=== PATIENT | female | born 1930 | race Caucasian/White ===

== ENCOUNTER → 2016-11-04 | Outpatient (CLI) | payer OTHER ==
[~2016-11-04] MED LIST: AMLO-114 PO; ASCA500 PO; ASPI325T45 PO; ATEN50TA8 PO; ATOR-14 PO; ATOR10TA82 PO; ATV/1 PO; ATV1 PO; BLAC160C PO; CALC1TAB27 PO; CHOL1TAB42 PO; CHOL1TAB46 PO; CTP/1 PO; DICY10CA12 PO; DULO60CA44 PO; ESTR1CRE PV; FLUO0.05 TOP; FOLI1TAB7 PO; FOLI800T PO; FRS/40 PO; LDDP5 TD; LOSA50TA54 PO; MECL1TAB42 PO; MELO15TA4 PO; MLXESC PO; MRLP17X PO; MULT-190 PO; NIAC500T11 PO; NXM/40 PO; OXYB10TA13 PO; OXYC-57 PO; POLY335019 PO; POTA8CAP6 PO; SULF-183 PO; VITATAB PO; VSC/10 PO; [UNRECOGNIZED DRUG - CODE] PO
--- NOTE | 2016-11-04 15:38 | DIAGNOSTIC IMAGING REPORT ---
BILATERAL LOWER EXTREMITY VENOUS DOPPLER CLINICAL HISTORY: Leg pain and edema. COMPARISON STUDY: Left lower extremity venous Doppler January 22 2013. TECHNIQUE: Sonography of the deep venous system of the bilateral lower extremities was performed. Compression and augmentation were evaluated. FINDINGS: The bilateral common femoral, superficial femoral and popliteal veins were compressible. Augmentation was normal. Flow was shown within the deep calf vessels. A right popliteal fluid collection measures 7.3 x 2.5 x 4.4 cm and a left popliteal fluid collection measures 6.2 x 1.8 x 3.5 cm. These reflect popliteal cyst. IMPRESSION: 1. No evidence of deep venous thrombus within the bilateral lower extremities. 2. Moderate sized bilateral popliteal cysts. Electronically signed by: Lizandro Vieyra M.D. 11/04/2016 3:36 PM Dictated Date/Time: 11/04/2016 3:33 PM
== END | disposition home or self-care (01) ==
LOC: C.ULTR 14:54
PROVIDERS: ATTEND Internal Medicine
DX: M79.604 Pain in right leg (principal); M79.605 Pain in left leg; R60.0 Localized edema

== ENCOUNTER 2016-12-18 20:22 | Emergency (ER) | payer OTHER ==
[~2016-12-18] VITALS: Ht 157.5 cm; Wt 87.3 kg
[~2016-12-18 20:22] MED LIST changes: -ATOR10TA82 PO; -ATV1 PO; -BLAC160C PO; -CHOL1TAB46 PO; -FOLI800T PO; -LDDP5 TD; -MELO15TA4 PO; -MLXESC PO; -MRLP17X PO; -OXYC-57 PO; -POLY335019 PO; -POTA8CAP6 PO; -SULF-183 PO; -VSC/10 PO
[2016-12-18 20:35] VITALS: TEMP 36.6; Ht 157.5 cm; Wt 87.3 kg
--- NOTE | 2016-12-18 21:40 | DIAGNOSTIC IMAGING REPORT ---
HEAD CT NONCONTRAST CT DOSE: 537.48 mGy.cm HISTORY: fall, posterior impact. CHI TECHNIQUE: Multiaxial CT images of the head were performed without the use of intravenous contrast. Automated exposure control was utilized for this study. Comparison: None. Findings: The paranasal sinuses and mastoid air cells are clear. The calvarium and skull base are intact. There is no mass, hematoma, midline shift, acute infarct. White matter hypodensity is nonspecific but suggestive of microvascular ischemic change. The ventricles and sulci demonstrate mild age-related involutional changes. Left posterior scalp hematoma. Impression: No acute intracranial abnormality. Atrophy and microvascular ischemic changes. Left posterior scalp hematoma. Electronically signed by: Hero Oconnell M.D. 12/18/2016 9:38 PM Dictated Date/Time: 12/18/2016 9:32 PM
[2016-12-18 22:53] VITALS: BP 173/91; PULSE 57; O2SAT 97
--- NOTE | 2016-12-18 23:58 | EMERGENCY ROOM VISIT NOTE ---
History Report prepared by Annalisaibshanelle: Amado Neville Under the Supervision of: Dr. Rajeev Long M.D. First contact with patient: 20:43 Chief Complaint: HEAD INJURY (MINOR) Stated Complaint: FALL History of Present Illness The patient is an 86 year old female who presents to the Emergency Room with an acute fall that occurred earlier this evening. The patient was in her kitchen when she slipped, fell backwards, and hit the back of her head on the tile floor. The floor was reportedly wet. She now has head pain rated 5/10 in severity. She did not lose consciousness. There were no external signs of bleeding at any point. She had Tylenol just prior to the fall. The fall was witnessed by her daughter, who informed the patient's son. The patient does not currently take any blood thinners including aspirin. She follows up with the [facility]. She has lower extremity edema at baseline. Patient denies LOC, visual changes, neck pain, chest pain, breathing difficulties, nausea, vomiting, abdominal pain, back pain, extremity pain, numbness, weakness , open wounds, active bleeding, or other complaints. Source of History: patient, family (son) Onset: this evening Position: other (global) Quality: other (fall) Timing: other (acute) Associated Symptoms: + headache Review of Systems See HPI for pertinent positives and negatives. A total of ten systems were reviewed and were otherwise negative. Past Medical & Surgical Medical Problems: (1) Herpes zoster (2) Humerus fracture Family History Patient reports no known family medical history. Social History Smoking Status: Never Smoker Alcohol Use: none Drug Use: none Marital Status: single Housing Status: lives with family Occupation Status: retired Current/Historical Medications Scheduled Amlodipine (Norvasc), 5 MG PO DAILY Ascorbic Acid (Vitamin C), 1,000 MG PO BID Aspirin (Aspirin), 325 MG PO BIDM Atenolol (Tenormin), 50 MG PO HS Atorvastatin (Lipitor), 10 MG PO QPM Kmhipwk-Hokdthymz-Kbmo (Calcium Magnesium & Zinc), 1 TAB PO TID Cholecalciferol (Vitamin D), 5,000 UNITS PO DAILY Clonidine Hcl (Catapres), 0.1 MG PO BID Duloxetine Hcl (Cymbalta), 60 MG PO DAILY Esomeprazole Magnesium (Nexium), 40 MG PO DAILY/UD Estrogens, Conjugated Vaginal (Premarin), 0.5 APPLN PV 2XWK Folic Acid (Folvite), 1 MG PO DAILY Furosemide (Lasix), 40 MG PO DAILY Losartan Potassium (Cozaar), 50 MG PO BID Niacin (Niacin), 500 MG PO BID Ocuvite Preservision (Ocuvite Preservision), 1 TAB PO BID Oxybutynin Chloride Er (Ditropan Xl), 10 MG PO DAILY Potassium Chloride (Potassium Chloride Er), 1 CAP PO DAILY Vitamins W/ Lipotropics (B-100), 1 TAB PO BID Scheduled PRN Dicyclomine Hcl (Dicyclomine Hcl), 10 MG PO QID PRN Fluocinonide 0.05% (Lidex 0.05%), 1 APPLN TOP BID PRN for Itching Lorazepam (Ativan), 1 MG PO TID PRN Meclizine Hcl (Meclizine Hcl), 25 MG PO QID PRN Allergies Coded Allergies: Acetaminophen (Verified Allergy, sick, 01/22/13) Dextromethorphan (Verified Allergy, sick, 01/22/13) Guaifenesin (Verified Allergy, sick, 01/22/13) Meperidine (Verified Allergy, passed out, 01/22/13) Pseudoephedrine (Verified Allergy, sick, 01/22/13) Tramadol (Verified Allergy, sick all over, 01/22/13) Physical Exam Vital Signs Date Time Temp Pulse Resp B/P Pulse Ox O2 Delivery O2 Flow Rate FiO2 12/18/16 22:53 57 18 173/91 97 Room Air 12/18/16 21:30 54 18 155/79 98 Room Air 12/18/16 20:53 53 12/18/16 20:38 20 12/18/16 20:35 36.6 58 18 155/79 93 Room Air Physical Exam GENERAL: Awake, alert, tired appearing, no acute distress HEAD: Contusion over the left occiput. No sethi sign. No raccoon eyes. EYES: Normal conjunctiva. PERRL. EARS: External ears normal. OROPHARYNX: Lips, tongue, and mucosa unremarkable. No erythema or exudate. NECK: Supple. No tracheal deviation or JVD. No posterior midline tenderness. No step offs noted. RESPIRATORY: CTA bilaterally CARDIAC: Regular rate, normal rhythm. ABDOMEN: Inspection reveals no abnormalities. Soft, non distended. No tenderness to palpation. No hernias. BACK: No midline step offs or tenderness to palpation. Unremarkable. PELVIS: Stable to rock. SKIN: 1+ lower extremity edema. LYMPH: No adenopathy. MUSCULOSKELETAL: Upper and lower extremities are atraumatic. NEURO: GCS 15. Normal sensorium. No sensory or motor deficits noted. Medical Decision & Procedures ER Provider Diagnostic Interpretation: Radiology results as stated below per my review and radiologist interpretation: HEAD CT NONCONTRAST CT DOSE: 537.48 mGy.cm HISTORY: fall, posterior impact. CHI TECHNIQUE: Multiaxial CT images of the head were performed without the use of intravenous contrast. Automated exposure control was utilized for this study. Comparison: None. Findings: The paranasal sinuses and mastoid air cells are clear. The calvarium and skull base are intact. There is no mass, hematoma, midline shift, acute infarct. White matter hypodensity is nonspecific but suggestive of microvascular ischemic change. The ventricles and sulci demonstrate mild age-related involutional changes. Left posterior scalp hematoma. Impression: No acute intracranial abnormality. Atrophy and microvascular ischemic changes. Left posterior scalp hematoma. Electronically signed by: Hero Oconnell M.D. 12/18/2016 9:38 PM Dictated Date/Time: 12/18/2016 9:32 PM ED Course 2111: The patient was evaluated in room C9. A complete history and physical exam was performed. 2209: I reevaluated the patient. Discussed results and discharge instructions: She verbalized understanding and agreement. The patient is ready for discharge. Medical Decision Prior records/ancillary studies reviewed. Triage Nursing notes reviewed and agree them. Additional history obtained from family. The patient's history was concerning for traumatic head injury Differential diagnosis: Etiologies such as contusion, fracture, subdural hematoma, concussion, epidural hematoma, intraparenchymal hemorrhage, as well as other traumatic pathologies were entertained. Physical examination findings: As above. ER treatment provided: The patient took Tylenol just before the accident. Icepack On reassessment the patient felt better. Diagnostics interpreted by me: Imaging studies: CT scan It appears the patient has a closed head injury. I did discuss warning signs for delayed bleeding and serious complications from head injury. The patient's family feel comfortable with going home.I gave my usual and customary discussion regarding this issue. By the evaluation outlined above emergent etiologies such as fracture, subdural hematoma, epidural hematoma, intraparenchymal hemorrhage, as well as others were deemed relatively unlikely. The patient and family were informed about the findings as listed above. All questions were answered and they were pleased with the treatment. Return instructions were outlined and the patient was discharged in stable condition. Referral: The patient was referred back to her PCP primary care physician for follow-up in 2 to 3 days for a recheck of the current condition. The chart was completed utilizing [employer] Speech voice recognition software. Grammatical errors, random word insertions, pronoun errors, and incomplete sentences are an occasional consequence of this system due to software limitations, ambient noise, and hardware issues. Any formal questions or concerns about the content, text, or information contained within the body of this dictation should be directly addressed to the physician for clarification. Impression Primary Impression: Scalp hematoma Additional Impression: Closed head injury Scribe Attestation The scribe's documentation has been prepared under my direction and personally reviewed by me in its entirety. I confirm that the note above accurately reflects all work, treatment, procedures, and medical decision making performed by me. Departure Information Dispostion Home / Self-Care Referrals Navin Bertrand D.O. (PCP) Forms HOME CARE DOCUMENTATION FORM, IMPORTANT VISIT INFORMATION Patient Instructions My [facility] Additional Instructions CONCUSSION DISCHARGE INSTRUCTIONS: What is a concussion? A concussion is a disturbance in the function of the brain caused by a direct or indirect force to the head. It results in a variety of symptoms like: headache, balance problems, nausea, vomiting, vision problems, hearing problems/ringing, drowsiness, irritability, and/or difficulty concentrating or remembering. A concussion may, or may not involve memory problems or loss of consciousness. Concussion instructions: Stop and stay away from ALL physical activity until you are symptom free from: Headaches Balance problems Feeling "dinged" Poor concentration Drowsy Fatigued Rest and avoid strenuous activities for the next few days. Get 8-10 hours of sleep per night. Limit activities that involve significant concentration and attention during this time to speed your recovery. This includes studying, attending school, playing video games, and heavy reading. Your brain needs to rest. Eat right and eat often. Now is the time to feed your brain. Well balanced diets that avoid high sugar foods, sodas, caffeine, etc. are better for your brain. NO ALCOHOL OR DRUGS! Avoid stimulants like caffeine, red bull, mountain dew, "energy" drinks, etc. Tylenol(acetaminophen) may be used for headaches. Use 1000mg every six hours as needed. Avoid using more than 4000mg in a 24 hour period. Avoid anti-inflammatories such as aspirin, ibuprofen, Alleve, naprosyn, Motrin, or Advil as these can interfere with blood clotting and lead to bleeding within the brain after a traumatic injury. FOLLOW UP INSTRUCTIONS: You should have a follow up with your family doctor or team physician in 3-5 days regarding your injury. POST CONCUSSIVE SYNDROME: Occasionally patients can experience a postconcussive syndrome which includes prolonged headaches and memory difficulties. This may occur over the next several days, weeks or rarely, even months. It is important to have a primary care physician follow-up in order to help if the situation develops. Problems could arise over the next 24 to 48 hours. You should not be left alone and MUST go to the hospital immediately if you: -Have a headache that suddenly gets worse. -Are very drowsy or cannot be woken up from sleep. -Can't recognize people or places. -Have repeated vomiting. -Behave unusually, seemed confused, or start acting irritable. -Have a seizure (arms and legs start jerking uncontrollably). -Have weak or numb arms or legs. -Are unsteady on your feet -Experience slurred speech or difficulty speaking. Problem Qualifiers Primary Impression: Scalp hematoma Encounter type: initial encounter Qualified Codes: S00.03XA - Contusion of scalp, initial encounter Additional Impression: Closed head injury Encounter type: initial encounter Qualified Codes: S09.90XA - Unspecified injury of head, initial encounter
[2017-02-25] MEDS ORDERED: ATOR10TA82 PO (14:31)
[2017-02-26] MEDS ORDERED: ATV1 PO (09:48)
[2017-02-26] MEDS ORDERED: MRLP17X PO (09:48)
[2017-02-26] MEDS ORDERED: MLXESC PO (09:48)
[2017-02-26] MEDS ORDERED: OXYC-57 PO (09:48)
[2017-02-26] MEDS ORDERED: LDDP5 TD (09:48)
== END 2016-12-18 23:05 | disposition home or self-care (01) ==
LOC: EDBD 20:22 → C.EDC 20:23
DX: S00.03XA Contusion of scalp, initial encounter (principal); S09.90XA Unspecified injury of head, initial encounter; W19.XXXA Unspecified fall, initial encounter; B02.9 Zoster without complications; Z79.82 Long term (current) use of aspirin

== ENCOUNTER 2017-02-25 12:13 | Observation (INO) | payer OTHER ==
[~2017-02-25] VITALS: Ht 160 cm; Wt 87.6 kg
[2017-02-25] MEDS ORDERED: MoRPHine SULFATE 4 MG/ML 1 ML CARP\\VIAL IV STA (13:07)
[2017-02-25] MEDS ORDERED: ONDANSETRON INJ 2 MG/ML 2 ML VIAL IV STA (13:07)
--- NOTE | 2017-02-25 13:50 | DIAGNOSTIC IMAGING REPORT ---
PELVIS 1 OR 2 VIEW ROUTINE CLINICAL HISTORY: fall/left buttock bruise and pain. COMPARISON STUDY: No previous studies for comparison. FINDINGS: The sacroiliac joints and symphysis pubis are intact. No acute fracture is identified within the pelvis or the hips. IMPRESSION: No acute fracture within the pelvis or hips. Electronically signed by: Lizandro Vieyra M.D. 02/25/2017 1:49 PM Dictated Date/Time: 02/25/2017 1:48 PM
--- NOTE | 2017-02-25 13:52 | DIAGNOSTIC IMAGING REPORT ---
LEFT SHOULDER MIN 2 VIEWS ROUTINE CLINICAL HISTORY: Left shoulder pain following fall. COMPARISON: Left shoulder radiograph July 02, 2014. FINDINGS: Alignment of the left shoulder arthroplasty is anatomic. No periprosthetic fracture is identified. Note is made of several acute left-sided rib fractures, one of which is mildly displaced. IMPRESSION: 1. Status post left shoulder arthroplasty. Hardware intact. Alignment anatomic. No periprosthetic fracture identified. 2. Several acute lateral left-sided rib fractures, one of which is mildly displaced. Electronically signed by: Lizandro Vieyra M.D. 02/25/2017 1:51 PM Dictated Date/Time: 02/25/2017 1:49 PM
[2017-02-25 13:58] LABS: BASO % 0.1 %; BASO ABS # 0.01 K/uL (0-0.2); COMPLETE YES; EOS % 0.4 %; HEMATOCRIT 39.1 % (37-47); IG% 0.1 %; LYMPH % 13.8 %; MEAN CELL VOLUME 94.9 fL (80-100); MEAN CORPUSCULAR HGB CONC 33.8 g/dl (32-36); MEAN PLATELET VOLUME 9.7 fL (7.4-10.4); MONO % 9.4 %; NEUT % 76.2 %; PLATELET COUNT 264 K/uL (130-400); RED BLOOD COUNT 4.12 M/uL (4.2-5.4); WHITE BLOOD COUNT 9.45 K/uL (4.8-10.8)
[2017-02-25 14:14] LABS: PARTIAL THROMBOPLASTIN RATIO 1.1; PROTHROMBIN TIME (PATIENT) 10.9 SECONDS (9.0-12.0)
[2017-02-25 14:15] LABS: BUN/CREATININE RATIO 11.7 (10-20); CALCIUM 9.7 mg/dl (8.5-10.1); CREATININE 0.67 mg/dl (0.60-1.20); POTASSIUM 3.9 mmol/L (3.5-5.1)
[2017-02-25] MEDS ORDERED: ATOR10TA88 PO (14:31)
[2017-02-25] MEDS ORDERED: VSC/10 PO (14:31)
[2017-02-25] MEDS ORDERED: FOLI800T PO (14:31)
[2017-02-25] MEDS ORDERED: MELO15TA4 PO (14:31)
[2017-02-25 15:17] LABS: URINE APPEARANCE CLEAR (CLEAR); URINE BILIRUBIN NEG (NEG); URINE COLOR YELLOW; URINE EPITHELIAL CELL AUTO 0-5 /lpf (0-5); URINE NITRITE NEG (NEG); URINE PH 7.5 (4.5-7.5); URINE SPECIFIC GRAVITY 1.011 (1.000-1.030); UROBILINOGEN NEG (NEG); ZZUR CULT IF INDIC CLEAN CATCH NO
[2017-02-25 15:27] LABS: MANUAL MICROSCOPIC REQUIRED? NO; REVIEW REQ? NO; SULFASALICYLIC ACID NEG (NEG)
--- NOTE | 2017-02-25 15:28 | DIAGNOSTIC IMAGING REPORT ---
CT OF THE HEAD WITHOUT CONTRAST CLINICAL HISTORY: Fall/headache. COMPARISON STUDY: Head CT December 18, 2016. CT DOSE: 2667.55 mGy.cm TECHNIQUE: Helical axial images of the head were obtained without IV contrast. Automated exposure control was utilized for the study. A dose lowering technique was utilized adhering to the principles of ALARA. FINDINGS: No acute intracranial hemorrhage, midline shift or mass effect is present. Ventricular system is stable. Basilar cisterns are patent. There are no extra-axial collections. White matter hypodensities suggest moderate small vessel disease. A left posterior scalp contusion has nearly completely resolved since prior head CT. There is no calvarial fracture. IMPRESSION: 1. No acute intracranial findings. 2. No calvarial fracture. Electronically signed by: Lizandro Vieyra M.D. 02/25/2017 3:27 PM Dictated Date/Time: 02/25/2017 3:25 PM
--- NOTE | 2017-02-25 15:37 | DIAGNOSTIC IMAGING REPORT ---
CT OF THE CHEST WITHOUT IV CONTRAST CLINICAL HISTORY: Left-sided chest pain following fall. COMPARISON STUDY: Chest radiograph April 03, 2004 18. TECHNIQUE: Axial images of the chest were obtained without IV contrast. Images were reviewed in the axial, sagittal, and coronal planes. IV contrast was not administered for this examination. A dose lowering technique was utilized adhering to the principles of ALARA. FINDINGS: No mediastinal hematoma is identified. Evaluation of the thoracic aorta is suboptimal on this unenhanced exam but there is no evidence of traumatic injury to the thoracic aorta. Size of the heart is normal. There are no enlarged thoracic lymph nodes. There is no pneumothorax or pleural effusion. There is an indeterminate 8 mm groundglass opacity within left lower lobe shown on image 160 of 312. There are acute nondisplaced fractures of the lateral left third, fourth, fifth ribs as well as mildly displaced fractures of the lateral left sixth and seventh ribs. No acute thoracic spine fracture is identified. Lumbar spine will be reported separately. Left shoulder arthroplasty is noted. IMPRESSION: 1. Acute minimally displaced and nondisplaced fractures of the lateral left third through seventh ribs. No pneumothorax. 2. 8 mm groundglass opacity within the left lower lobe. This is low suspicion but indeterminate and a follow-up chest CT in 6 months to ensure resolution is recommended. Electronically signed by: Lizandro Vieyra M.D. 02/25/2017 3:36 PM Dictated Date/Time: 02/25/2017 3:27 PM
--- NOTE | 2017-02-25 15:43 | DIAGNOSTIC IMAGING REPORT ---
LUMBAR SPINE WITHOUT CLINICAL HISTORY: fall/low back pain/urinary incontinence COMPARISON STUDY: No previous studies for comparison. FINDINGS: No acute lumbar spine fracture is identified. There is marked multilevel disc space narrowing with osteophytosis. There is severe multilevel facet arthrosis. Central canal and neural foramen are suboptimally assessed by CT. However, there is suspected moderate to severe multilevel central canal and neural foraminal stenosis. Paravertebral soft tissues are unremarkable. IMPRESSION: 1. No acute lumbar spine fracture or subluxation. 2. 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 Electronically signed by: Lizandro Vieyra M.D. 02/25/2017 3:41 PM Dictated Date/Time: 02/25/2017 3:37 PM
[2017-02-25] MEDS ORDERED: HYDROCODONE/ACETAMOPHEN 5/325MG TAB PO STA (15:54)
--- NOTE | 2017-02-25 16:12 | EMERGENCY ROOM VISIT NOTE ---
ED Visit Note First contact with patient: 12:55 The patient was seen and examined with Shikha Ball PA-C. I agree with the history, physical and findings. Please see the note for disposition and details.
--- NOTE | 2017-02-25 16:32 | EMERGENCY ROOM VISIT NOTE ---
History First contact with patient: 12:55 Chief Complaint: FALL Stated Complaint: FALL History of Present Illness The patient is a 86 year old female who presents to the Emergency Room via EMS with complaints of falling. The patient states she tripped on a rug. The patient lives alone. She does not think she lost consciousness. She states she was in her living room when the fall occurred. The son who was not there found her along side of a table which is along side of her chair which she normally since then. He also states that there is a plastic trash can that sits under the table which was broken when he came to her house. He states he had called her at approximately 920 this morning and at that point she was in the bathroom. He then went to check on her at 11:00 AM and found her on the living room floor. The patient is currently complaining of a headache at the front of her head. She denies any visual changes or dizziness. The patient denies any neck or upper back pain. She does admit to pain on both the posterior and anterior aspect of her left chest wall. She also admits to low back pain and pain in her left buttocks. She thinks she has a bruise on her left buttocks. The patient denies any pain in her lower extremities. The patient does admit that after the fall she felt like she was more incontinent with her urine. She denies any bowel incontinence. The patient denies any saddle anesthesia. The patient denies being on any blood thinners. She took 2 Tylenol before coming to the emergency room. Review of Systems 10 system review was performed and was negative unless stated otherwise history of present illness. Past Medical/Surgical History Medical Problems: (1) Herpes zoster (2) Humerus fracture Hypertension, hyperlipidemia Family History Patient reports no known family medical history. Social History Smoking Status: Never Smoker Alcohol Use: none Drug Use: none Marital Status: single Housing Status: lives alone Occupation Status: retired Current/Historical Medications Scheduled Atenolol (Tenormin), 50 MG PO PM Atorvastatin (Lipitor), 10 MG PO QPM Cholecalciferol (Vitamin D), 5,000 UNITS PO DAILY Clonidine Hcl (Catapres), 0.1 MG PO BID Duloxetine Hcl (Cymbalta), 60 MG PO DAILY Esomeprazole Magnesium (Nexium), 40 MG PO DAILY/UD Folic Acid (Folic Acid), 800 MCG PO BID Furosemide (Lasix), 40 MG PO DAILY Losartan Potassium (Cozaar), 50 MG PO BID Meclizine Hcl (Meclizine Hcl), 25 MG PO DIRECTED Meloxicam (Mobic), 15 MG PO QAM Potassium Chloride (Potassium Chloride Er), 1 CAP PO DAILY Solifenacin Succinate (Vesicare), 10 MG PO QAM Scheduled PRN Dicyclomine Hcl (Dicyclomine Hcl), 10 MG PO QID PRN Lorazepam (Ativan), 1 MG PO TID PRN Physical Exam Vital Signs Date Time Temp Pulse Resp B/P (MAP) Pulse Ox O2 Delivery O2 Flow Rate FiO2 02/25/17 16:23 71 19 94 02/25/17 16:02 150/76 02/25/17 15:53 75 13 94 02/25/17 15:48 73 16 91 02/25/17 15:43 72 12 90 02/25/17 15:38 76 14 89 02/25/17 15:33 75 13 91 02/25/17 15:31 163/76 02/25/17 15:28 74 13 88 02/25/17 15:23 72 16 93 02/25/17 15:18 69 14 92 02/25/17 15:13 70 19 94 02/25/17 15:08 74 13 173/71 83 02/25/17 14:03 70 94 02/25/17 14:01 164/89 02/25/17 13:58 64 13 96 02/25/17 13:53 68 17 97 02/25/17 13:48 66 20 93 02/25/17 13:43 73 19 93 02/25/17 13:42 215/101 02/25/17 13:38 65 17 02/25/17 13:33 67 18 02/25/17 13:28 71 17 02/25/17 13:23 68 21 02/25/17 13:18 66 17 02/25/17 13:13 67 19 96 02/25/17 13:08 64 17 96 02/25/17 13:03 67 20 93 02/25/17 12:58 66 14 98 02/25/17 12:54 75 02/25/17 12:53 75 21 96 02/25/17 12:48 172/62 02/25/17 12:46 98 Room Air 7/29/17 12:37 36.7 63 14 186/104 96 Room Air Physical Exam GENERAL: 86-year-old white female appears in no acute distress. MENTAL STATUS: Patient is alert and oriented x3. HEAD: Atraumatic, nontender to palpation throughout. No bony abnormality noted. EYES: PERRLA. EOMs intact. EARS: Canals clear. TMs without hemotympanum noted. NECK: Supple, no lymphadenopathy noted. No carotid bruits noted. LUNGS: Clear auscultation without wheezes rales or rhonchi. CARDIAC: Regular rate and rhythm without murmur. Pulses is full and equal throughout. CHEST WALL: Patient is tender to palpation over both the left anterior and posterior chest wall. There is an abrasion noted on the posterior mid to lower chest wall. This is inferior to the scapula. Right side is nontender. ABDOMEN: Positive bowel sounds all 4 quadrants. Soft, nontender to palpation without organomegaly or masses. NEURO: Grossly intact. CERVICAL/THORACIC: SPINE: Cervical and thoracic spine are nontender to palpation. No gross bony deformity noted. LUMBAR SPINE: No gross bony deformity noted. The patient is nontender to palpation over the spinous processes. Mild tenderness palpation in the left paravertebral region. Did not assess range of motion. LEFT HIP: No gross bony deformity noted. The patient has a large area of ecchymosis noted on the left buttocks. She is non-tender to palpation overreaction hip joint. Patient is able to move her left hip but it is painful. LEFT SHOULDER: No gross bony deformity noted. The patient is tender to palpation over the posterior aspect of the shoulder and scapula. She is nontender to palpation over the shoulder joint. Full range of motion. LOWER EXTREMITIES: The patient has edema and an area of redness on the right lower leg consistent with stasis dermatitis. No bruising noted. Patient is nontender to palpation over both ankles and knees. Medical Decision & Procedures ER Provider Diagnostic Interpretation: LUMBAR SPINE WITHOUT CLINICAL HISTORY: fall/low back pain/urinary incontinence COMPARISON STUDY: No previous studies for comparison. FINDINGS: No acute lumbar spine fracture is identified. There is marked multilevel disc space narrowing with osteophytosis. There is severe multilevel facet arthrosis. Central canal and neural foramen are suboptimally assessed by CT. However, there is suspected moderate to severe multilevel central canal and neural foraminal stenosis. Paravertebral soft tissues are unremarkable. IMPRESSION: 1. No acute lumbar spine fracture or subluxation. 2. 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 Electronically signed by: Lizandro Vieyra M.D. 02/25/2017 3:41 PM Dictated Date/Time: 02/25/2017 3:[address] OF THE HEAD WITHOUT CONTRAST CLINICAL HISTORY: Fall/headache. COMPARISON STUDY: Head CT December 18, 2016. CT DOSE: 2667.55 mGy.cm TECHNIQUE: Helical axial images of the head were obtained without IV contrast. Automated exposure control was utilized for the study. A dose lowering technique was utilized adhering to the principles of ALARA. FINDINGS: No acute intracranial hemorrhage, midline shift or mass effect is present. Ventricular system is stable. Basilar cisterns are patent. There are no extra-axial collections. White matter hypodensities suggest moderate small vessel disease. A left posterior scalp contusion has nearly completely resolved since prior head CT. There is no calvarial fracture. IMPRESSION: 1. No acute intracranial findings. 2. No calvarial fracture. Electronically signed by: Lizandro Vieyra M.D. 02/25/2017 3:27 PM Dictated Date/Time: 02/25/2017 3:[address] OF THE CHEST WITHOUT IV CONTRAST CLINICAL HISTORY: Left-sided chest pain following fall. COMPARISON STUDY: Chest radiograph April 03, 2004 18. TECHNIQUE: Axial images of the chest were obtained without IV contrast. Images were reviewed in the axial, sagittal, and coronal planes. IV contrast was not administered for this examination. A dose lowering technique was utilized adhering to the principles of ALARA. FINDINGS: No mediastinal hematoma is identified. Evaluation of the thoracic aorta is suboptimal on this unenhanced exam but there is no evidence of traumatic injury to the thoracic aorta. Size of the heart is normal. There are no enlarged thoracic lymph nodes. There is no pneumothorax or pleural effusion. There is an indeterminate 8 mm groundglass opacity within left lower lobe shown on image 160 of 312. There are acute nondisplaced fractures of the lateral left third, fourth, fifth ribs as well as mildly displaced fractures of the lateral left sixth and seventh ribs. No acute thoracic spine fracture is identified. Lumbar spine will be reported separately. Left shoulder arthroplasty is noted. IMPRESSION: 1. Acute minimally displaced and nondisplaced fractures of the lateral left third through seventh ribs. No pneumothorax. 2. 8 mm groundglass opacity within the left lower lobe. This is low suspicion but indeterminate and a follow-up chest CT in 6 months to ensure resolution is recommended. Electronically signed by: Lizandro Vieyra M.D. 02/25/2017 3:36 PM Dictated Date/Time: 02/25/2017 3:27 PM LEFT SHOULDER MIN 2 VIEWS ROUTINE CLINICAL HISTORY: Left shoulder pain following fall. COMPARISON: Left shoulder radiograph July 02, 2014. FINDINGS: Alignment of the left shoulder arthroplasty is anatomic. No periprosthetic fracture is identified. Note is made of several acute left-sided rib fractures, one of which is mildly displaced. IMPRESSION: 1. Status post left shoulder arthroplasty. Hardware intact. Alignment anatomic. No periprosthetic fracture identified. 2. Several acute lateral left-sided rib fractures, one of which is mildly displaced. Electronically signed by: Lizandro Vieyra M.D. 02/25/2017 1:51 PM Dictated Date/Time: 02/25/2017 1:49 PM PELVIS 1 OR 2 VIEW ROUTINE CLINICAL HISTORY: fall/left buttock bruise and pain. COMPARISON STUDY: No previous studies for comparison. FINDINGS: The sacroiliac joints and symphysis pubis are intact. No acute fracture is identified within the pelvis or the hips. IMPRESSION: No acute fracture within the pelvis or hips. Electronically signed by: Lizandro Vieyra M.D. 02/25/2017 1:49 PM Laboratory Results 02/25/17 13:25 Red Blood Count 4.12, Mean Corpuscular Volume 94.9, Mean Corpuscular Hemoglobin 32.0, Mean Corpuscular Hemoglobin Concent 33.8, Mean Platelet Volume 9.7, Neutrophils (%) (Auto) 76.2, Lymphocytes (%) (Auto) 13.8, Monocytes (%) (Auto) 9.4, Eosinophils (%) (Auto) 0.4, Basophils (%) (Auto) 0.1, Neutrophils # (Auto) 7.20, Lymphocytes # (Auto) 1.30, Monocytes # (Auto) 0.89, Eosinophils # (Auto) 0.04, Basophils # (Auto) 0.01 02/25/17 13:25 Test 02/25/17 13:25 02/25/17 15:00 White Blood Count 9.45 K/uL (4.8-10.8) Red Blood Count 4.12 M/uL (4.2-5.4) Hemoglobin 13.2 g/dL (12.0-16.0) Hematocrit 39.1 % (37-47) Mean Corpuscular Volume 94.9 fL (80-100) Mean Corpuscular Hemoglobin 32.0 pg (25-34) Mean Corpuscular Hemoglobin Concent 33.8 g/dl (32-36) Platelet Count 264 K/uL (130-400) Mean Platelet Volume 9.7 fL (7.4-10.4) Neutrophils (%) (Auto) 76.2 % Lymphocytes (%) (Auto) 13.8 % Monocytes (%) (Auto) 9.4 % Eosinophils (%) (Auto) 0.4 % Basophils (%) (Auto) 0.1 % Neutrophils # (Auto) 7.20 K/uL (1.4-6.5) Lymphocytes # (Auto) 1.30 K/uL (1.2-3.4) Monocytes # (Auto) 0.89 K/uL (0.11-0.59) Eosinophils # (Auto) 0.04 K/uL (0-0.5) Basophils # (Auto) 0.01 K/uL (0-0.2) RDW Standard Deviation 44.4 fL (36.4-46.3) RDW Coefficient of Variation 12.8 % (11.5-14.5) Immature Granulocyte % (Auto) 0.1 % Immature Granulocyte # (Auto) 0.01 K/uL (0.00-0.02) Prothrombin Time 10.9 SECONDS (9.0-12.0) Prothromb Time International Ratio 1.0 (0.9-1.1) Activated Partial Thromboplast Time 29.2 SECONDS (21.0-31.0) Partial Thromboplastin Ratio 1.1 Anion Gap 4.0 mmol/L (3-11) Est Creatinine Clear Calc Drug Dose 64.7 ml/min Estimated GFR () 92.9 Estimated GFR (Non- 80.2 BUN/Creatinine Ratio 11.7 (10-20) Calcium Level 9.7 mg/dl (8.5-10.1) Urine Color YELLOW Urine Appearance CLEAR (CLEAR) Urine pH 7.5 (4.5-7.5) Urine Specific [place] 1.011 (1.000-1.030) Urine Protein NEG (NEG) Urine Glucose (UA) NEG (NEG) Urine Ketones NEG (NEG) Urine Occult Blood NEG (NEG) Urine Nitrite NEG (NEG) Urine Bilirubin NEG (NEG) Urine Urobilinogen NEG (NEG) Urine Leukocyte Esterase NEG (NEG) Urine WBC (Auto) 0 /hpf (0-5) Urine RBC (Auto) 0-4 /hpf (0-4) Urine Hyaline Casts (Auto) 0 /lpf (0-5) Urine Epithelial Cells (Auto) 0-5 /lpf (0-5) Urine Bacteria (Auto) NEG (NEG) Medications Administered Medications (Trade) Dose Ordered Sig/Sujata Route Start Time Stop Time Status Last Admin Dose Admin Morphine Sulfate (MoRPHine SULFATE INJ) 4 mg NOW STAT IV 02/25/17 13:07 02/25/17 13:12 DC 02/25/17 13:58 4 MG Ondansetron HCl (Zofran Inj) 4 mg NOW STAT IV 02/25/17 13:07 02/25/17 13:12 DC 02/25/17 13:57 4 MG ECG Indication: other (fall) Rhythm: normal sinus Findings: no acute ischemic change Change: no significant change (as compared to 04/03/2014) ED Course The patient was evaluated. The patient's EMR medication list were reviewed. EKG was ordered and interpreted as above. The patient was placed on a monitor. IV access was obtained. CBC and differential, renal profile, coags were ordered. X-ray of the left shoulder and pelvis was ordered and interpreted by the radiologist and myself. Pelvis revealed no acute fracture. Left shoulder with no acute abnormality although it was noted that there were rib fractures noted. CT of the head, chest and lumbar spine were ordered and interpreted by the radiologist. The patient was given morphine 4 mg IV for pain and Zofran 4 mg IV push for associated nausea from the pain medication. Labs are reviewed and were unremarkable. The CAT scan of the head was normal, lumbar spine revealed no acute fractures, CT of the chest revealed no pneumothorax but 5 left -sided rib fractures. The patient and son were informed of findings. The patient was stating her pain was still an 8 out of 10. The son did not one her to receive any additional morphine since it made her "funny" in the past. The patient was therefore given [place] 5/325 mg one tablet by mouth for pain. The patient was independently evaluated byDr. Long who agreed with treatment plan. The patient son were informed of treatment plan and were in agreement. The hospitalist was consulted for admission. Medical Decision Differential diagnosis include pneumothorax, rib fractures, chest contusion, cardiac contusion, hemothorax Other differentials for spine, shoulder and pelvis are contusions versus fractures Impression Primary Impression: Multiple fractures of ribs of left side Additional Impressions: Fall Contusion, buttock Urinary incontinence Departure Information Dispostion Being Evaluated By Hospitalist Condition GOOD Referrals Navin Bertrand D.O. (PCP) Patient Instructions [facility] Problem Qualifiers Primary Impression: Multiple fractures of ribs of left side Encounter type: initial encounter Fracture type: closed Qualified Codes: S22.42XA - Multiple fractures of ribs, left side, initial encounter for closed fracture Additional Impressions: Fall Encounter type: initial encounter Qualified Codes: W19.XXXA - Unspecified fall, initial encounter Contusion, buttock Encounter type: initial encounter Qualified Codes: S30.0XXA - Contusion of lower back and pelvis, initial encounter Urinary incontinence Urinary Incontinence type: unspecified incontinence Qualified Codes: R32 - Unspecified urinary incontinence
[2017-02-25] MEDS ORDERED: MAGNESIUM HYDROXIDE SUSP 30 ML UDC PO PRN (17:30)
[2017-02-25] MEDS ORDERED: ALUMINUM/MAGNESIUM/SIMETH (MAALOX MAX) 30 ML UDC PO PRN (17:30)
[2017-02-25] MEDS ORDERED: MECLIZINE HCL 25 MG TAB PO PRN (17:30)
[2017-02-25] MEDS ORDERED: POLYETHYLENE (MIRALAX) 17 GM PACK PO PRN (17:30)
[2017-02-25] MEDS ORDERED: DICYCLOMINE HCL 10 MG CAP PO PRN (17:30)
[2017-02-25] MEDS ORDERED: ONDANSETRON INJ 2 MG/ML 2 ML VIAL IV PRN (17:30)
[2017-02-25] MEDS ORDERED: ACETAMINOPHEN 325 MG TAB PO PRN (17:30)
[2017-02-25] MEDS ORDERED: LORAZEPAM 1 MG TAB PO PRN (17:30)
[2017-02-25] MEDS ORDERED: IV FLUIDS COMPLETED PRN (17:45)
--- NOTE | 2017-02-25 18:09 | History and Physical ---
History & Physical Date & Time of Service: Feb 25, 2017 at 18:09 Chief Complaint: FALL Primary Care Physician: Navin Bertrand D.O. History of Present Illness Source: patient, family (son ) this is a 86 yo F with past medical hx of HTN , Anxiety disorder , GERD, CKD stage 3 . hyperlipidemia tripped on end of Rug earlier today , landed on floor , hitting the end table prior to fall pt mention area rug end was crumples and she tired to step over lost her balance, fell on her left side , she tried to break fall using her left hand did not lost conciseness, had severe pain on left chest wall and left buttock area her son found her on floor , pt brought to ED via EMs pt denies of any chest pain , SOB , dizzy spell prior or after fall , remembers clearly tripping on rug and hitting on end table had a fall few years back -causing injury to her left shoulder Xay on ED shows multiple rib fractures on left side Past Medical/Surgical History Medical Problems: (1) Herpes zoster Status: Resolved (2) Humerus fracture Status: Resolved Family History Patient reports no known family medical history. Social History Smoking Status: Never Smoker Drug Use: none Marital Status: single Occupational Status: retired Allergies Coded Allergies: Acetaminophen (Verified Allergy, Unknown, sick, 02/25/17) Dextromethorphan (Verified Allergy, Unknown, sick, 02/25/17) Guaifenesin (Verified Allergy, Unknown, sick, 02/25/17) Meperidine (Verified Allergy, Unknown, passed out, 02/25/17) Pseudoephedrine (Verified Allergy, Unknown, sick, 02/25/17) Tramadol (Verified Allergy, Unknown, sick all over, 02/25/17) Home Medications Scheduled Atenolol (Tenormin), 50 MG PO PM Atorvastatin (Lipitor), 10 MG PO QPM Cholecalciferol (Vitamin D), 5,000 UNITS PO DAILY Clonidine Hcl (Catapres), 0.1 MG PO BID Duloxetine Hcl (Cymbalta), 60 MG PO DAILY Esomeprazole Magnesium (Nexium), 40 MG PO DAILY/UD Folic Acid (Folic Acid), 800 MCG PO BID Furosemide (Lasix), 40 MG PO DAILY Lidocaine (Lidocaine), 1 PATCH TD QAM Lorazepam (Lorazepam), 1 MG PO TID Losartan Potassium (Cozaar), 50 MG PO BID Meclizine Hcl (Meclizine Hcl), 25 MG PO DIRECTED Meloxicam (Mobic), 15 MG PO QAM Potassium Chloride (Potassium Chloride Er), 1 CAP PO DAILY Solifenacin Succinate (Vesicare), 10 MG PO QAM Scheduled PRN Aluminum/Magnesium/Simeth (Mag-Al Plus Xs 400-400-40 mg/5Ml), 15 ML PO Q4H PRN for Dyspepsia Dicyclomine Hcl (Dicyclomine Hcl), 10 MG PO QID PRN Lorazepam (Ativan), 1 MG PO TID PRN Oxycodone/Acetaminophen 5MG/325MG (Percocet 5MG/325MG), 1 TAB PO Q6 PRN for Pain Polyethylene (Miralax), 17 GM PO DAILY PRN for Constipation Review of Systems Constitutional: No fever, No chills, No sweats, No weight loss, No weakness, No fatigue, No problem reported Eyes: No worsening of vision, No eye pain, No redness, No discharge, No diplopia, No problem reported ENT: No hearing loss, No unusual epistaxis, No nasal symptoms, No sore throat, No tinnitus, No dental problems, No trouble swallowing, No problem reported Respiratory: No cough, No sputum, No wheezing, No shortness of breath, No dyspnea on exertion, No dyspnea at rest, No hemoptysis, No problem reported Cardiovascular: + chest pain (on left chest reprodcible with palpation wall after fall ) Abdomen: No pain, No nausea, No vomiting, No diarrhea, No constipation, No GI bleeding, No problem reported Musculoskeletal: No joint pain, No muscle pain, No swelling, No calf pain, No problem reported Genitourinary - Female: No dysuria, No urinary frequency, No urinary urgency, No urinary incontinence, No urinary retention, No hematuria, No dysmenorrhea, No menorrhagia, No metrorrhagia, No rash, No vaginal bleeding, No vaginal discharge, No vaginal itching, No vulvodynia, No , No problem reported Neurologic: No memory loss, No paralysis, No weakness, No numbness/tingling, No vertigo, No balance problems, No problem reported Psychiatric: + anxiety Endocrine: No fatigue, No excessive thirst, No excessive urination, No problem reported Hematologic / Lymphatic: No abnormal bleeding/bruising, No clotting problems, No swollen lymph nodes, No night sweats, No problem reported Integumentary: No rash, No itch, No new/changing skin lesions, No color change , No bleeding, No problem reported Physical Exam Vital Signs Date Time Temp Pulse Resp B/P (MAP) Pulse Ox O2 Delivery O2 Flow Rate FiO2 02/25/17 17:13 72 21 93 02/25/17 17:02 77 02/25/17 16:58 74 25 02/25/17 16:43 72 15 97 02/25/17 16:28 70 21 95 02/25/17 16:23 71 19 94 02/25/17 16:02 150/76 02/25/17 15:53 75 13 94 02/25/17 15:48 73 16 91 02/25/17 15:43 72 12 90 02/25/17 15:38 76 14 89 02/25/17 15:33 75 13 91 02/25/17 15:31 163/76 02/25/17 15:28 74 13 88 02/25/17 15:23 72 16 93 02/25/17 15:18 69 14 92 02/25/17 15:13 70 19 94 02/25/17 15:08 74 13 173/71 83 02/25/17 14:03 70 94 02/25/17 14:01 164/89 02/25/17 13:58 64 13 96 02/25/17 13:53 68 17 97 02/25/17 13:48 66 20 93 02/25/17 13:43 73 19 93 02/25/17 13:42 215/101 02/25/17 13:38 65 17 02/25/17 13:33 67 18 02/25/17 13:28 71 17 02/25/17 13:23 68 21 02/25/17 13:18 66 17 02/25/17 13:13 67 19 96 02/25/17 13:08 64 17 96 02/25/17 13:03 67 20 93 02/25/17 12:58 66 14 98 02/25/17 12:54 75 02/25/17 12:53 75 21 96 02/25/17 12:48 172/62 02/25/17 12:46 98 Room Air 02/25/17 12:37 36.7 63 14 186/104 96 Room Air General Appearance: no apparent distress Head: normocephalic, atraumatic Eyes: sclerae normal Neck: supple, no JVD Respiratory/Chest: lungs clear, normal breath sounds, no respiratory distress Cardiovascular: regular rate, rhythm, no JVD, normal peripheral pulses Abdomen/GI: normal bowel sounds, non tender, soft Back: + pertinent finding (brusie on left back /no skin tear , left sided chest wall tendernss , superficial skin tear bruise on left buttock reported per ariel , pt was not moved for exam due to pain with repositioning ) Extremities/Musculoskelatal: no pedal edema, + pertinent finding (left great toe fungal infection , red macular /papular lesion on rt lower leg -prior healed shingles wound ) Neurologic/Psych: alert, oriented x 3 Skin: + pertinent finding (healed wound form prior shigles on rt lower leg ) Diagnostics Laboratory Results Results Past 24 Hours Test 02/25/17 13:25 02/25/17 15:00 Range/Units White Blood Count 9.45 4.8-10.8 K/uL Red Blood Count 4.12 4.2-5.4 M/uL Hemoglobin 13.2 12.0-16.0 g/dL Hematocrit 39.1 37-47 % Mean Corpuscular Volume 94.9 80-100 fL Mean Corpuscular Hemoglobin 32.0 25-34 pg Mean Corpuscular Hemoglobin Concent 33.8 32-36 g/dl Platelet Count 264 130-400 K/uL Mean Platelet Volume 9.7 7.4-10.4 fL Neutrophils (%) (Auto) 76.2 % Lymphocytes (%) (Auto) 13.8 % Monocytes (%) (Auto) 9.4 % Eosinophils (%) (Auto) 0.4 % Basophils (%) (Auto) 0.1 % Neutrophils # (Auto) 7.20 1.4-6.5 K/uL Lymphocytes # (Auto) 1.30 1.2-3.4 K/uL Monocytes # (Auto) 0.89 0.11-0.59 K/uL Eosinophils # (Auto) 0.04 0-0.5 K/uL Basophils # (Auto) 0.01 0-0.2 K/uL RDW Standard Deviation 44.4 36.4-46.3 fL RDW Coefficient of Variation 12.8 11.5-14.5 % Immature Granulocyte % (Auto) 0.1 % Immature Granulocyte # (Auto) 0.01 0.00-0.02 K/uL Prothrombin Time 10.9 9.0-12.0 SECONDS Prothromb Time International Ratio 1.0 0.9-1.1 Activated Partial Thromboplast Time 29.2 21.0-31.0 SECONDS Partial Thromboplastin Ratio 1.1 Sodium Level 140 136-145 mmol/L Potassium Level 3.9 3.5-5.1 mmol/L Chloride Level 104 98-107 mmol/L Carbon Dioxide Level 32 21-32 mmol/L Anion Gap 4.0 3-11 mmol/L Blood Urea Nitrogen 8 7-18 mg/dl Creatinine 0.67 0.60-1.20 mg/dl Est Creatinine Clear Calc Drug Dose 64.7 ml/min Estimated GFR () 92.9 Estimated GFR (Non- 80.2 BUN/Creatinine Ratio 11.7 10-20 Random Glucose 112 70-99 mg/dl Calcium Level 9.7 8.5-10.1 mg/dl Urine Color YELLOW Urine Appearance CLEAR CLEAR Urine pH 7.5 4.5-7.5 Urine Specific [place] 1.011 1.000-1.030 Urine Protein NEG NEG Urine Glucose (UA) NEG NEG Urine Ketones NEG NEG Urine Occult Blood NEG NEG Urine Nitrite NEG NEG Urine Bilirubin NEG NEG Urine Urobilinogen NEG NEG Urine Leukocyte Esterase NEG NEG Urine WBC (Auto) 0 0-5 /hpf Urine RBC (Auto) 0-4 0-4 /hpf Urine Hyaline Casts (Auto) 0 0-5 /lpf Urine Epithelial Cells (Auto) 0-5 0-5 /lpf Urine Bacteria (Auto) NEG NEG Diagnostic Radiology CT CHEST : IMPRESSION: 1. Acute minimally displaced and nondisplaced fractures of the lateral left third through seventh ribs. No pneumothorax. 2. 8 mm groundglass opacity within the left lower lobe. This is low suspicion but indeterminate and a follow-up chest CT in 6 months to ensure resolution is recommended. LEFT SHOULDER XRAY : 1. Status post left shoulder arthroplasty. Hardware intact. Alignment anatomic. No periprosthetic fracture identified. 2. Several acute lateral left-sided rib fractures, one of which is mildly displaced. XRAY OF PELVIS : IMPRESSION: No acute fracture within the pelvis or hips. CT OF LUMBER SPINE: IMPRESSION: 1. No acute lumbar spine fracture or subluxation. 2. 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 Impression Assessment and Plan FRACTURE RIBS DUE TO MECHANICAL FALL tripped on end of rug -causing her to fall multiple rib fx of left t side conservative approach with pain control Cxray : no pneumothorax ordered for incentive spirometry has skin tear on sacral area due to fall and hitting on floor wound care consulted HYPERTENSIVE URGENCY : SBP elevated in ED > 200 possible due to pain , anxiety out pt clinic visits BP always been well controlled pain control Cont Home medications of Clonidine , Losartan monitor in Tele overnight DEPRESSION /ANXIETY DISORDER : cont with Cymbalta Ativan 1 mg TID scheduled -pt been on this regimen for past 9 yrs HYPERLIPIDEMIA : cont statin HX OF GERD : on PPI CODE STATUS : FULL CODE ; d/w pt -has living will , wants resuscitative attempts to be done in setting of cardiopulmonary arrest does not want prolong life support DISPOSITION ; will benefit form rehab pt and son prefers -[facility] PT/OT eval ordered Social service consult for discharge planning Level of Care Telemetry Resuscitation Status FULL RESUSCITATION VTE Prophylaxis VTE Risk Assessment Done? Y/N: Yes Risk Level: Moderate Given or contraindicated: Unfractionated heparin SQ Additional Copies To Navin Bertrand D.O.
[2017-02-25] MEDS ORDERED: OXYCODONE/ACETAMINOPHEN 5-325 TAB PO PRN (18:15)
[2017-02-25] MEDS: LIDODERM (LIDOCAINE) PATCH 5% TD SCH (18:15)
[2017-02-25 18:29] VITALS: BP 172/84; PULSE 75; TEMP 36.8; O2SAT 93; Ht 160 cm; Wt 87.6 kg
[2017-02-25] MEDS ORDERED: CLONIDINE HCL 0.1 MG TAB PO PRN (18:30)
[2017-02-25 19:07] VITALS: BP 145/79; PULSE 70; TEMP 37; O2SAT 92
[2017-02-25] MEDS: LORAZEPAM 1 MG TAB PO SCH (20:31)
[2017-02-25] MEDS: ATORVASTATIN 10 MG TAB PO SCH (20:32)
[2017-02-25] MEDS: CLONIDINE HCL 0.1 MG TAB PO SCH (20:32)
[2017-02-25] MEDS: FoLIC ACID TAB 400 MCG TAB PO SCH (20:32)
[2017-02-25] MEDS: LOSARTAN POTASSIUM 50 MG TAB PO SCH (20:32)
[2017-02-25] MEDS: DICYCLOMINE HCL 10 MG CAP PO SCH (20:33)
[2017-02-25] MEDS: HEPARIN SOD 5000 UNIT/0.5 ML CARP SQ SCH (20:34)
[2017-02-26] VITALS (10 sets, daily range): BP systolic 107–135; BP diastolic 55–82; PULSE 64–90; TEMP 36.6–37.1; O2SAT 90–98
[2017-02-26] MEDS: HYDROmorphone INJ 0.5 MG/0.5 ML SYR IV PRN ×2 (04:19→19:55)
[2017-02-26] MEDS: HEPARIN SOD 5000 UNIT/0.5 ML CARP SQ SCH ×3 (05:47→21:14)
[2017-02-26] MEDS: LIDODERM (LIDOCAINE) PATCH 5% TD SCH (07:26)
[2017-02-26] MEDS: LORAZEPAM 1 MG TAB PO SCH ×3 (08:12→21:12)
[2017-02-26] MEDS: FUROSEMIDE 40 MG TAB PO SCH (08:13)
[2017-02-26] MEDS: DULOXETINE HCL 60 MG CAP PO SCH (08:13)
[2017-02-26] MEDS: FoLIC ACID TAB 400 MCG TAB PO SCH ×2 (08:13→21:12)
[2017-02-26] MEDS: PANTOprazole SOD 40 MG TAB PO SCH (08:13)
[2017-02-26] MEDS: CHOLECALCIFEROL 1000 INTER.UNIT TAB PO SCH (08:13)
[2017-02-26] MEDS: LOSARTAN POTASSIUM 50 MG TAB PO SCH ×2 (08:14→21:13)
[2017-02-26] MEDS: CLONIDINE HCL 0.1 MG TAB PO SCH ×2 (08:14→21:12)
[2017-02-26] MEDS: DICYCLOMINE HCL 10 MG CAP PO SCH ×4 (08:14→21:12)
[2017-02-26] MEDS ORDERED: PNEUMOCOCCAL ADMINISTRATION CHARGE ONE (09:00)
[2017-02-26] MEDS ORDERED: PNEUMOCOCCAL POLYSACCHARIDES 25 MCG/0.5 ML VIAL/SYR IM. ONE (09:00)
[2017-02-26] MEDS ORDERED: OXYC-57 PO (09:48)
[2017-02-26] MEDS ORDERED: LDDP5 TD (09:48)
[2017-02-26] MEDS ORDERED: MLXESC PO (09:48)
[2017-02-26] MEDS ORDERED: ATV1 PO (09:48)
[2017-02-26] MEDS ORDERED: MRLP17X PO (09:48)
--- NOTE | 2017-02-26 09:50 | Discharge Instructions ---
Discharge Instructions Date of Service Feb 26, 2017. Admission Reason for Admission: Hypertensive Urgency, Multiple Rib Fractures Discharge Discharge Diagnosis / Problem: MULTIPLE RIB FRACTURES ON LEFT SIDE S/P FALL Discharge Goals Goal(s): Decrease discomfort, Improve function, Increase independence, Improve disease control, Diagnostic testing Activity Recommendations Activity Level: Assistance Required Therapies: Physical Therapy, Occupational Therapy Exercise/Sports Limitations: as tolerated Shower/Bathe: no limitations . Additional Information Patient informed of condition: No Advance Directives: Yes DNR: No Level of Care: Acute Rehab Communicable Disease: No Prognosis: Stable David Catheter: No Instructions / Follow-Up Instructions / Follow-Up FOLLOW UP WITH FAMILY PHYSICIAN DR SERNA AFTER DISCHARGE FORM REHAB WILL NEED CONTINUED INCENTIVE SPIROMETRY TO PREVENT ATELECTASIS CT CHEST FINDING : 8 mm ground glass opacity within the left lower lobe. This is low suspicion but indeterminate and a follow-up chest CT in 6 months to ensure resolution is recommended. NEEDS CT CHEST FOLLOW UP IN 6 MONTHS CONTINUE LOCAL WOUND CARE ON LEFT BUTTOCK AREA FOR SKIN TEAR , OFF LOADING , POSITION CHANGE MUCH POSSIBLE TO ALLOW HEALING Current Hospital Diet Patient's current hospital diet: AHA Diet (Heart Healthy) Discharge Diet Recommended Diet: AHA Diet (Heart Healthy) Pending Studies Studies pending at discharge: no Medical Emergencies . Who to Call and When: Medical Emergencies: If at any time you feel your situation is an emergency, please call 911 immediately. . Non-Emergent Contact Non-Emergency issues call your: Primary Care Provider . . "Provider Documentation" section prepared by Sharonda Mehta. . Core Measure Problem Core Measures: None
--- NOTE | 2017-02-26 09:57 | Progress Note ---
Internal Med Progress Note Date of Service: Feb 26, 2017. Provider Documentation: SUBJECTIVE: left sided chest pain , pleuritic discomfort much better today BP remains stable no acute event overnight OBJECTIVE: Vital Signs-as noted below Exam: General-elderly female , no sign of distress Eyes-sclera non icteric ENT-nad Neck-no JVD Lungs-CTA Heart-regular S1/S2 Abdomen-soft, non tender Extremities-ecchymotic bruise on left buttock area with approx 4-5 cm skin tear , base pick ( happened due to fall and laceration ) Neuro-no focal deficit Lab data as noted below. ASSESSMENT & PLAN: FRACTURE MULTIPLE LEFT SIDE RIBS DUE TO MECHANICAL FALL tripped on end of rug -causing her to fall multiple rib fx of LEFT side conservative approach with pain control CT CHEST : 1. Acute minimally displaced and nondisplaced fractures of the lateral left third through seventh ribs. No pneumothorax. 2. 8 mm ground glass opacity within the left lower lobe. This is low suspicion but indeterminate and a follow-up chest CT in 6 months to ensure resolution is recommended. cont incentive spirometry has skin tear on sacral area due to fall and hitting on floor wound care consulted PT/OT eval requested pt will benefit with rehab /SNF HYPERTENSIVE URGENCY : resolved . BP stable today stable to transfer to medical floor SBP was elevated in ED > 200 possible due to pain , anxiety out pt clinic visits BP always been well controlled pain control Cont Home medications of Clonidine , Losartan DEPRESSION /ANXIETY DISORDER : cont with Cymbalta Ativan 1 mg TID scheduled -pt been on this regimen for past 9 yrs HYPERLIPIDEMIA : cont statin HX OF GERD : on PPI CODE STATUS : FULL CODE ; d/w pt -has living will , wants resuscitative attempts to be done in setting of cardiopulmonary arrest does not want prolong life support DISPOSITION ; will benefit form rehab pt and son prefers -[facility] PT/OT eval ordered Social service consult for discharge planning transfer to rehab when accepted Vital Signs: Date Time Temp Pulse Resp B/P (MAP) Pulse Ox O2 Delivery O2 Flow Rate FiO2 02/26/17 08:00 95 Nasal Cannula 2.0 02/26/17 07:42 37.0 67 20 107/55 (72) 90 Room Air 02/26/17 04:44 37.1 90 16 135/82 (99) 92 02/26/17 04:00 Room Air 02/26/17 00:24 37.0 88 16 118/71 (87) 95 Room Air 02/26/17 00:00 Room Air 02/25/17 20:00 Room Air 02/25/17 19:07 37.0 70 18 145/79 (101) 92 Room Air 02/25/17 18:29 36.8 75 16 172/84 93 Room Air 02/25/17 18:07 71 21 150/76 98 02/25/17 17:13 72 21 93 02/25/17 17:02 77 02/25/17 16:58 74 25 02/25/17 16:43 72 15 97 02/25/17 16:28 70 21 95 02/25/17 16:23 71 19 94 02/25/17 16:02 150/76 02/25/17 15:53 75 13 94 02/25/17 15:48 73 16 91 02/25/17 15:43 72 12 90 02/25/17 15:38 76 14 89 02/25/17 15:33 75 13 91 02/25/17 15:31 163/76 02/25/17 15:28 74 13 88 02/25/17 15:23 72 16 93 02/25/17 15:18 69 14 92 02/25/17 15:13 70 19 94 02/25/17 15:08 74 13 173/71 83 02/25/17 14:03 70 94 02/25/17 14:01 164/89 02/25/17 13:58 64 13 96 02/25/17 13:53 68 17 97 02/25/17 13:48 66 20 93 02/25/17 13:43 73 19 93 02/25/17 13:42 215/101 02/25/17 13:38 65 17 02/25/17 13:33 67 18 02/25/17 13:28 71 17 02/25/17 13:23 68 21 02/25/17 13:18 66 17 02/25/17 13:13 67 19 96 02/25/17 13:08 64 17 96 02/25/17 13:03 67 20 93 02/25/17 12:58 66 14 98 02/25/17 12:54 75 02/25/17 12:53 75 21 96 02/25/17 12:48 172/62 02/25/17 12:46 98 Room Air 02/25/17 12:37 36.7 63 14 186/104 96 Room Air Lab Results: Results Past 24 Hours Test 02/25/17 13:25 02/25/17 15:00 Range/Units White Blood Count 9.45 4.8-10.8 K/uL Red Blood Count 4.12 4.2-5.4 M/uL Hemoglobin 13.2 12.0-16.0 g/dL Hematocrit 39.1 37-47 % Mean Corpuscular Volume 94.9 80-100 fL Mean Corpuscular Hemoglobin 32.0 25-34 pg Mean Corpuscular Hemoglobin Concent 33.8 32-36 g/dl Platelet Count 264 130-400 K/uL Mean Platelet Volume 9.7 7.4-10.4 fL Neutrophils (%) (Auto) 76.2 % Lymphocytes (%) (Auto) 13.8 % Monocytes (%) (Auto) 9.4 % Eosinophils (%) (Auto) 0.4 % Basophils (%) (Auto) 0.1 % Neutrophils # (Auto) 7.20 1.4-6.5 K/uL Lymphocytes # (Auto) 1.30 1.2-3.4 K/uL Monocytes # (Auto) 0.89 0.11-0.59 K/uL Eosinophils # (Auto) 0.04 0-0.5 K/uL Basophils # (Auto) 0.01 0-0.2 K/uL RDW Standard Deviation 44.4 36.4-46.3 fL RDW Coefficient of Variation 12.8 11.5-14.5 % Immature Granulocyte % (Auto) 0.1 % Immature Granulocyte # (Auto) 0.01 0.00-0.02 K/uL Prothrombin Time 10.9 9.0-12.0 SECONDS Prothromb Time International Ratio 1.0 0.9-1.1 Activated Partial Thromboplast Time 29.2 21.0-31.0 SECONDS Partial Thromboplastin Ratio 1.1 Sodium Level 140 136-145 mmol/L Potassium Level 3.9 3.5-5.1 mmol/L Chloride Level 104 98-107 mmol/L Carbon Dioxide Level 32 21-32 mmol/L Anion Gap 4.0 3-11 mmol/L Blood Urea Nitrogen 8 7-18 mg/dl Creatinine 0.67 0.60-1.20 mg/dl Est Creatinine Clear Calc Drug Dose 64.7 ml/min Estimated GFR () 92.9 Estimated GFR (Non- 80.2 BUN/Creatinine Ratio 11.7 10-20 Random Glucose 112 70-99 mg/dl Calcium Level 9.7 8.5-10.1 mg/dl Urine Color YELLOW Urine Appearance CLEAR CLEAR Urine pH 7.5 4.5-7.5 Urine Specific [place] 1.011 1.000-1.030 Urine Protein NEG NEG Urine Glucose (UA) NEG NEG Urine Ketones NEG NEG Urine Occult Blood NEG NEG Urine Nitrite NEG NEG Urine Bilirubin NEG NEG Urine Urobilinogen NEG NEG Urine Leukocyte Esterase NEG NEG Urine WBC (Auto) 0 0-5 /hpf Urine RBC (Auto) 0-4 0-4 /hpf Urine Hyaline Casts (Auto) 0 0-5 /lpf Urine Epithelial Cells (Auto) 0-5 0-5 /lpf Urine Bacteria (Auto) NEG NEG
--- NOTE | 2017-02-26 13:29 | ORTHOPEDIC CONSULTATION ---
DATE OF CONSULTATION: 02/26/2017 HISTORY OF PRESENT ILLNESS: This is an 86-year-old female who was seen at the request of Dr. Mehta and Dr. Bertrand after she sustained a trip and fall while at home yesterday. The patient had struck the end of a table with her left chest wall and landed on the floor. She tripped over an area, which was crumpled. She lost her balance and fell on her left side. She did not lose consciousness. She had severe pain in the left anterior chest wall and left buttock area. Her son found her on the floor and transported her to the Emergency Department via EMS. The patient had no antecedent chest pain, shortness of breath or dizziness. PAST MEDICAL HISTORY: Herpes zoster, healed humeral fracture, hypertension, anxiety disorder, reflux, chronic kidney disease stage III, and hyperlipidemia. PAST SURGICAL HISTORY: Noncontributory. ALLERGIES: ACETAMINOPHEN WITH STOMACH UPSET; DEXTROMETHORPHAN, STOMACH UPSET; GUAIFENESIN, STOMACH UPSET; MEPERIDINE, THE PATIENT PASSED OUT; PSEUDOEPHEDRINE, STOMACH UPSET; AND TRAMADOL, UNEASY FEELING. MEDICATIONS: Tenormin 50 mg p.o. q.a.m., Lipitor 10 mg p.o. q.a.m., vitamin D 5000 International Units daily, Catapres 0.1 mg p.o. b.i.d., Cymbalta 60 mg p.o. daily, Nexium 40 mg 1 p.o. daily, folate 800 mcg p.o. b.i.d., Lasix 40 mg p.o. daily, lidocaine 1 patch daily, lorazepam 1 mg p.o. t.i.d., Cozaar 50 mg p.o. b.i.d., meclizine 25 mg p.o. p.r.n., Mobic 15 mg p.o. q.a.m., potassium chloride 1 cap p.o. daily, VESIcare 10 mg p.o. q.a.m., magnesium/aluminum plus XS 400/400/40 mg per 5 mL 15 mL p.o. q. 4 hours p.r.n. dyspepsia, dicyclomine 10 mg p.o. q.i.d. p.r.n., Ativan 1 mg p.o. t.i.d. p.r.n., Percocet 5/325 mg 1 tab p.o. q. 6 hours p.r.n. pain, and MiraLax 17 grams p.o. daily p.r.n. constipation. SOCIAL HISTORY: The patient denies tobacco, alcohol or drug use. She is . She lives alone. She is retired. PHYSICAL EXAMINATION: GENERAL: This is an 86-year-old female, who is sitting upright at bedside, eating lunch with her son present. She is alert and oriented x3. Speech is clear and fluent. Affect is appropriate and pleasant. CHEST: Examination of the chest wall demonstrates contusion with minor bruising anterior and anterolateral chest wall adjacent to the anterior breast. She has tenderness to palpation along the anterior and anterolateral chest wall with compression and palpation. There is no differential with regard to chest wall exertion. Symmetric motion with chest expansion and chess compression with inhalation and exhalation. She has discomfort with motion of the left shoulder girdle related to the chest wall. EXTREMITIES: Radial pulses are 2/4 bilaterally. NEUROLOGIC: Axillary nerve and sensory and motor function are intact. Radiographs demonstrate ribs 3 through 7 fractures with displacement of ribs [address] scan of the chest also confirming radiographs rib fractures 3, 4, 5, 6 and 7, left chest wall. No hematoma. No pneumothorax. No hemopneumothorax per CT and radiographs. IMPRESSION: 1. Acute rib fractures on the left including the 3rd, 4th, 5th, 6th, and 7th. 2. Contusion, left chest wall with associated bruising. Discomfort related to multiple rib fractures. No respiratory compromise, no pneumothorax, and no hemopneumothorax. RECOMMENDATIONS: Close conservative treatment for the left 3rd, 4th, 5th, 6th and 7th rib fractures. Encourage incentive spirometry, supportive care, pain medication per medical service and ice to the area p.r.n. May follow up as an outpatient; however, does not require. Thank you for the opportunity to consult in the care of this patient.
[2017-02-26] MEDS: ATORVASTATIN 10 MG TAB PO SCH (21:12)
[2017-02-27] MEDS: OXYCODONE/ACETAMINOPHEN 5-325 TAB PO PRN ×3 (05:25→13:43)
[2017-02-27] MEDS: HEPARIN SOD 5000 UNIT/0.5 ML CARP SQ SCH (05:26)
[2017-02-27 06:37] LABS: BUN/CREATININE RATIO 19.8 (10-20); CREATININE 0.96 mg/dl (0.60-1.20); POTASSIUM 3.9 mmol/L (3.5-5.1)
[2017-02-27 07:09] VITALS: BP 124/73; PULSE 59; TEMP 36.9; O2SAT 96
[2017-02-27] MEDS: DICYCLOMINE HCL 10 MG CAP PO SCH ×2 (09:12→13:12)
[2017-02-27] MEDS: DULOXETINE HCL 60 MG CAP PO SCH (09:12)
[2017-02-27] MEDS: CHOLECALCIFEROL 1000 INTER.UNIT TAB PO SCH (09:12)
[2017-02-27] MEDS: PANTOprazole SOD 40 MG TAB PO SCH (09:13)
[2017-02-27] MEDS: FUROSEMIDE 40 MG TAB PO SCH (09:13)
[2017-02-27] MEDS: FoLIC ACID TAB 400 MCG TAB PO SCH (09:13)
[2017-02-27] MEDS: CLONIDINE HCL 0.1 MG TAB PO SCH (09:13)
[2017-02-27] MEDS: LOSARTAN POTASSIUM 50 MG TAB PO SCH (09:13)
[2017-02-27] MEDS: LIDODERM (LIDOCAINE) PATCH 5% TD SCH (09:15)
[2017-02-27] MEDS: LORAZEPAM 1 MG TAB PO SCH ×2 (09:16→13:12)
--- NOTE | 2017-02-27 11:16 | Progress Note ---
Subjective Date of Service: Feb 27, 2017. Subjective Pt evaluation today including: conversation w/ patient, physical exam, lab review, review of studies, review of inpatient medication list Saw/examined the patient in room 354 +pain at left side, improved with medications no shortness of breath No other issues to note Problem List Medical Problems: (1) Closed head injury Status: Acute (2) Contusion, buttock Status: Acute (3) Fall Status: Acute (4) Multiple fractures of ribs of left side Status: Acute (5) Scalp hematoma Status: Acute (6) Urinary incontinence Status: Acute Review of Systems Constitutional: No fever, No chills Respiratory: No cough, No sputum, No shortness of breath Cardiac: + see HPI, + chest pain (chest wall tenderness) Medications Current Inpatient Medications Medications (Trade) Dose Ordered Sig/Sujata Route Start Time Stop Time Status Last Admin Dose Admin Atenolol (Tenormin Tab) 50 mg PM PO 02/25/17 21:00 03/27/17 20:59 02/26/17 21:14 50 MG Atorvastatin Calcium (Lipitor Tab) 10 mg QPM PO 02/25/17 21:00 03/27/17 20:59 02/26/17 21:12 10 MG Clonidine HCl (Catapres Tab) 0.1 mg BID PO 02/25/17 21:00 03/27/17 20:59 02/27/17 09:13 0.1 MG Duloxetine HCl (Cymbalta Cap) 60 mg DAILY PO 02/26/17 09:00 03/28/17 08:59 02/27/17 09:12 60 MG Furosemide (Lasix Tab) 40 mg DAILY PO 02/26/17 09:00 03/28/17 08:59 02/27/17 09:13 40 MG Losartan Potassium (coZAAR TAB) 50 mg BID PO 02/25/17 21:00 03/27/17 20:59 02/27/17 09:13 50 MG Meclizine HCl (Antivert Tab) 25 mg Q8 PRN PO 02/25/17 17:30 03/27/17 17:29 Cholecalciferol (Vitamin D Tab) 5,000 inter.unit DAILY PO 02/26/17 09:00 03/28/17 08:59 02/27/17 09:12 5,000 INTER.UNIT Pantoprazole Sodium (Protonix Tab) 40 mg DAILY PO 02/26/17 09:00 03/28/17 08:59 02/27/17 09:13 40 MG Folic Acid (Folvite Tab) 800 mcg BID PO 02/25/17 21:00 03/27/17 20:59 02/27/17 09:13 800 MCG Miscellaneous Information (Order Awaiting Action) 1 ea QS N/A 02/26/17 00:00 03/28/17 00:00 Miscellaneous Information (Order Awaiting Action) 1 ea QS N/A 02/26/17 00:00 03/28/17 00:00 Heparin Sodium (Porcine) (Heparin Sq 5000 Unit/0.5ml) 5,000 unit Q8 SQ 02/25/17 22:00 03/27/17 21:59 02/27/17 05:26 5,000 UNIT Acetaminophen (Tylenol Tab) 650 mg Q4H PRN PO 02/25/17 17:30 03/27/17 17:29 Al Hydrox/Mg Hydrox/Simethicone (Maalox Max Susp) 15 ml Q4H PRN PO 02/25/17 17:30 03/27/17 17:29 Magnesium Hydroxide (Milk Of Magnesia Susp) 30 ml Q6H PRN PO 02/25/17 17:30 03/27/17 17:29 Polyethylene (Miralax Powder Packet) 17 gm DAILY PRN PO 02/25/17 17:30 03/27/17 17:29 Ondansetron HCl (Zofran Inj) 4 mg Q6H PRN IV 02/25/17 17:30 03/27/17 17:29 Miscellaneous (Iv Fluids Completed) 1 ea PRN PRN N/A 02/25/17 17:45 02/25/18 17:44 Dicyclomine HCl (Bentyl Cap) 10 mg QID PO 02/25/17 21:00 03/27/17 17:29 02/27/17 09:12 10 MG Lorazepam (Ativan Tab) 1 mg TID PO 02/25/17 21:00 03/27/17 17:29 02/27/17 09:16 1 MG Hydromorphone HCl (Dilaudid Inj) 0.5 mg Q4 PRN IV 02/25/17 18:15 03/11/17 18:14 02/26/17 19:55 0.5 MG Oxycodone/ Acetaminophen (Percocet 5-325mg Tab) 1 tab Q4H PRN PO 02/25/17 18:15 03/11/17 18:14 02/27/17 09:24 1 TAB Oxycodone/ Acetaminophen (Percocet 5-325mg Tab) 2 tab Q4H PRN PO 02/25/17 18:15 03/11/17 18:14 02/26/17 08:13 2 TAB Lidocaine (Lidoderm Patch 5%) 1 patch QAM TD 02/25/17 18:15 03/27/17 18:14 02/27/17 09:15 1 PATCH Miscellaneous (Remove Lidoderm Patch) 1 ea DAILY@21 N/A 02/25/17 21:00 03/27/17 20:59 02/26/17 21:13 1 EA Clonidine HCl (Catapres Tab) 0.1 mg Q8 PRN PO 02/25/17 18:30 03/27/17 18:29 Potassium Chloride (Klor-Con 8) 8 meq DAILY PO 02/28/17 09:00 03/30/17 08:59 UNV Solifenacin (Vesicare) 10 mg DAILY PO 02/28/17 09:00 03/30/17 08:59 UNV Objective Vital Signs Date Time Temp Pulse Resp B/P (MAP) Pulse Ox O2 Delivery O2 Flow Rate FiO2 02/27/17 07:45 Room Air 02/27/17 07:09 36.9 59 16 124/73 (90) 96 2.0 02/26/17 23:09 Nasal Cannula 02/26/17 22:45 36.9 64 16 125/71 (89) 96 Nasal Cannula 2.0 02/26/17 21:00 64 126/61 (82) 02/26/17 20:30 Nasal Cannula 2.0 02/26/17 15:43 36.6 65 17 134/77 (96) 98 Nasal Cannula 2.0 02/26/17 15:30 98 Nasal Cannula 2.0 Physical Exam General Appearance: no apparent distress ENT: hearing grossly normal Respiratory/Chest: lungs clear, normal breath sounds, no respiratory distress, no accessory muscle use, + pertinent finding (+chest wall tenderness, L lateral chest) Cardiovascular: regular rate, rhythm, no edema, no murmur Neurologic/Psychiatric: no motor/sensory deficits, alert, normal mood/affect Laboratory Results Last 24 Hours Test 02/27/17 05:08 Sodium Level 135 mmol/L Potassium Level 3.9 mmol/L Chloride Level 99 mmol/L Carbon Dioxide Level 30 mmol/L Anion Gap 6.0 mmol/L Blood Urea Nitrogen 19 mg/dl Creatinine 0.96 mg/dl Est Creatinine Clear Calc Drug Dose 45.0 ml/min Estimated GFR () 62.5 Estimated GFR (Non- 53.9 BUN/Creatinine Ratio 19.8 Random Glucose 133 mg/dl Calcium Level 9.0 mg/dl Assessment and Plan This is an 86 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 No pneumothorax pain control PT/OT plan is to d/c to rehab to [facility] today (02/27) Hypertensive Urgency - resolved on admission SBP >200 likely secondary to pain continue home mediations as blood pressures have improved Depression/Anxiety Cymbalta, Ativan - continue home medications HLD cont. statin GERD continue PPI FULL CODE plan is to d/c to [facility] on 02/27
--- NOTE | 2017-02-27 11:22 | Discharge Summary ---
Discharge Summary Date of Service Feb 27, 2017. Discharge Summary Admission Date: Feb 25, 2017 at 16:32 Discharge Date: Feb 27, 2017 Discharge Disposition: [facility] facility Principal Diagnosis: Mechanical Fall Multiple Rib Fractures on L Hypertensive Urgency - resolved Admission Information HPI (per Admitting provider): this is a 86 yo F with past medical hx of HTN , Anxiety disorder , GERD, CKD stage 3 . hyperlipidemia tripped on end of Rug earlier today , landed on floor , hitting the end table prior to fall pt mention area rug end was crumples and she tired to step over lost her balance, fell on her left side , she tried to break fall using her left hand did not lost conciseness, had severe pain on left chest wall and left buttock area her son found her on floor , pt brought to ED via EMs pt denies of any chest pain , SOB , dizzy spell prior or after fall , remembers clearly tripping on rug and hitting on end table had a fall few years back -causing injury to her left shoulder Xay on ED shows multiple rib fractures on left side Physical Exam (per Admitting): General Appearance: no apparent distress Head: normocephalic, atraumatic Eyes: sclerae normal Neck: supple, no JVD Respiratory/Chest: lungs clear, normal breath sounds, no respiratory distress Cardiovascular: regular rate, rhythm, no JVD, normal peripheral pulses Abdomen/GI: normal bowel sounds, non tender, soft Back: + pertinent finding (brusie on left back /no skin tear , left sided chest wall tendernss , superficial skin tear bruise on left buttock reported per nusing , pt was not moved for exam due to pain with repositioning ) Extremities/Musculoskelatal: no pedal edema, + pertinent finding (left great toe fungal infection , red macular /papular lesion on rt lower leg -prior healed shingles wound ) Neurologic/Psych: alert, oriented x 3 Skin: + pertinent finding (healed wound form prior shigles on rt lower leg ) Hospital Course This is an 86 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 No pneumothorax pain control PT/OT plan is to d/c to rehab to [facility] today (02/27) Hypertensive Urgency - resolved on admission SBP >200 likely secondary to pain continue home mediations as blood pressures have improved Depression/Anxiety Cymbalta, Ativan - continue home medications HLD cont. statin GERD continue PPI FULL CODE plan is to d/c to [facility] on 02/27 Total time spent on discharge = 40 minutes This includes examination of the patient, discharge planning, medication reconciliation, and communication with other providers. Discharge Instructions Follow-up with family physician after discharge from rehab
[2017-02-27 11:24] VITALS: BP 124/73; PULSE 59; TEMP 36.9; O2SAT 96
[2017-02-28] MEDS ORDERED: POTASSIUM CHLORIDE 8 MEQ TAB PO SCH (09:00)
[2017-02-28] MEDS ORDERED: SOLIFENACIN 10 MG TAB PO SCH (09:00)
== END 2017-02-27 14:03 ==
LOC: EDBD 12:13 → C.EDB 12:15 → C.2T 16:32 → ENRESERV 17:05 → C.MSW 02-26 11:18
PROVIDERS: ADMIT Hospitalist; ATTEND Hospitalist
DX: S22.42XA Multiple fractures of ribs, left side, initial encounter for closed fracture (principal); S30.0XXA Contusion of lower back and pelvis, initial encounter; R32 Unspecified urinary incontinence; E78.5 Hyperlipidemia, unspecified; F41.9 Anxiety disorder, unspecified; K21.9 Gastro-esophageal reflux disease without esophagitis; N18.3 Chronic kidney disease, stage 3 (moderate); I12.9 Hypertensive chronic kidney disease with stage 1 through stage 4 chronic kidney disease, or unspecified chronic kidney disease; W01.190A Fall on same level from slipping, tripping and stumbling with subsequent striking against furniture, initial encounter; Y92.018 Other place in single-family (private) house as the place of occurrence of the external cause

== ENCOUNTER 2017-05-07 06:00 | Emergency (ER) | payer OTHER ==
[~2017-05-07] VITALS: Ht 162.6 cm; Wt 89.2 kg
[~2017-05-07 06:00] MED LIST changes: -AMLO-114 PO; -ASCA500 PO; -ASPI325T45 PO; -ATOR-14 PO; +ATOR10TA88 PO; -ATV/1 PO; +ATV1 PO; -CALC1TAB27 PO; -ESTR1CRE PV; -FLUO0.05 TOP; -FOLI1TAB7 PO; +FOLI800T PO; +MLXESC PO; +MRLP17X PO; -MULT-190 PO; -NIAC500T11 PO; -OXYB10TA13 PO; +OXYC-57 PO; -VITATAB PO; +VSC/10 PO
[2017-05-07 06:11] VITALS: TEMP 37.2; Ht 162.6 cm; Wt 89.2 kg
[2017-05-07] MEDS ORDERED: BLAC160C PO (06:26)
[2017-05-07] MEDS ORDERED: MELO15TA4 PO (06:26)
[2017-05-07] MEDS ORDERED: SULF-183 PO (06:26)
[2017-05-07] MEDS ORDERED: POLY335019 PO (06:28)
[2017-05-07] MEDS ORDERED: MLXESC PO (06:28)
[2017-05-07] MEDS ORDERED: ATV/1 PO (06:28)
[2017-05-07] MEDS ORDERED: POTA8CAP6 PO (06:37)
[2017-05-07] MEDS ORDERED: CHOL1TAB46 PO (06:37)
--- NOTE | 2017-05-07 07:02 | EMERGENCY ROOM VISIT NOTE ---
History Report prepared by Melecio: Liz Francois Under the Supervision of: Dr. Darrell Wilkins M.D. First contact with patient: 06:28 Chief Complaint: FALL Stated Complaint: FALL/BILAT. HIP PAIN AND KNEE PAIN History of Present Illness The patient is a 86 year old female who presents to the Emergency Room with complaints of an episode of a fall beginning 1 hour and 30 minutes ago. The patient states that she had slippers on this morning and was walking on the tile floor in the bathroom when she slipped. She reports that she fell flat on her back and injured her back, right knee, and right hip. She notes that she hit her head but did not have any loss of consciousness. The patient's son states that the patient has a history of falls and fell 10 weeks ago and fractured her ribs. He notes that she is currently being treated for a UTI and is on her third day of antibiotics. He reports a history of memory issues, hemorrhoids, and hypertension. The patient states that she takes a baby aspirin. She complains of shortness of breath, slight abdominal pain, intermittent diarrhea, and leg swelling. She denies any recent illness, chest pain, and neck pain. The patient's son states that he believes that the patient fell onto the toilet as there was a part of it broken off when he came to get her. Source of History: patient, family Onset: 1 and a half hours ago Position: other (global) Quality: other (fall) Timing: other (episode) Associated Symptoms: + SOB, + abdominal pain, + back pain, + diarrhea, No neck pain, No chest pain Note: Pt complains of right knee pain, right hip pain, and leg swelling. She denies any recent illness. Review of Systems See HPI for pertinent positives & negatives. A total of 10 systems reviewed and were otherwise negative. Past Medical & Surgical Medical Problems: (1) Herpes zoster (2) Humerus fracture (3) Hypertensive urgency (4) Ribs, multiple fractures Old medical records were reviewed. Nurse's notes were reviewed and I agree with. Family History Patient reports no known family medical history. Social History Smoking Status: Never Smoker Alcohol Use: none Drug Use: none Marital Status: single Housing Status: lives alone Occupation Status: retired Current/Historical Medications Scheduled Atenolol (Tenormin), 50 MG PO HS Atorvastatin (Lipitor), 10 MG PO QPM Black Cohosh (Cimicifuga Racem (Black Cohosh), 160 MG PO QAM Cholecalciferol (Vitamin D3), 5,000 UNITS PO HS Clonidine Hcl (Catapres), 0.1 MG PO BID Dicyclomine Hcl (Dicyclomine Hcl), 10 MG PO QID Duloxetine Hcl (Cymbalta), 60 MG PO QAM Esomeprazole Magnesium (Nexium), 40 MG PO DAILYBB Folic Acid (Folic Acid), 800 MCG PO AMHS Furosemide (Lasix), 40 MG PO DAILY AT NOON Lorazepam (Ativan), 1 MG PO TID Losartan Potassium (Cozaar), 50 MG PO BID Meloxicam (Mobic), 15 MG PO QAM Potassium Chloride (Klor-Con Ext Rel), 8 MEQ PO DAILY AT NOON Solifenacin Succinate (Vesicare), 10 MG PO QAM Sulfamethoxazole-Trimethoprim (Smz-Tmp Ds), 1 TAB PO BID Scheduled PRN Aluminum/Magnesium/Simeth (Mag-Al Plus Xs 400-400-40 mg/5Ml), 15 ML PO Q4H PRN for Dyspepsia Meclizine Hcl (Meclizine Hcl), 25 MG PO DIRECTED PRN for Dizziness or Vertigo Polyethylene Glycol 3350 (Miralax), 17 GM PO DAILY PRN for Constipation Allergies Coded Allergies: Acetaminophen (Verified Allergy, Unknown, sick, 05/07/17) Dextromethorphan (Verified Allergy, Unknown, sick, 05/07/17) Guaifenesin (Verified Allergy, Unknown, sick, 05/07/17) Meperidine (Verified Allergy, Unknown, passed out, 05/07/17) Pseudoephedrine (Verified Allergy, Unknown, sick, 05/07/17) Tramadol (Verified Allergy, Unknown, sick all over, 05/07/17) Physical Exam Vital Signs Date Time Temp Pulse Resp B/P (MAP) Pulse Ox O2 Delivery O2 Flow Rate FiO2 05/07/17 10:17 64 16 186/86 98 Room Air 05/07/17 09:07 81 18 158/61 95 Room Air 05/07/17 07:57 63 18 181/79 95 Room Air 05/07/17 07:14 62 18 158/69 93 Room Air 05/07/17 06:11 37.2 69 18 191/84 97 Room Air Physical Exam General: Non-ill appearing older female in no acute distress. HEENT: Normal cephalic atraumatic. Pupils are equal round and reactive to light. Extraocular movements are intact. Oropharynx is pink with moist mucous membranes. No swelling of the mouth lips or tongue. Neck: Supple with a midline trachea. No meningeal signs or stiffness, no JVD or bruits. No Stridor. Chest: Clear to auscultation bilaterally. No wheezes or rhonchi. No increased work of breathing. Heart: regular rate and rhythm. Abdomen: Soft nontender, nondistended without rebound guarding or rigidity. Extremities: No cyanosis clubbing. No calf tenderness or assymetry. Right hip pain, right knee pain. 1+ bilateral lower extremity edema. Spine/Back. Mild lower thoracic back pain. No CVA tenderness Skin: Good turgor without rashes. Neurologic exam: Cranial nerves two through 12 are intact. Motor and sensation are intact and symmetrical throughout. GCS 14, she does not know the date. Medical Decision & Procedures ER Provider Diagnostic Interpretation: Radiology results as stated below per my review and radiologist interpretation: THORACIC SPINE 3 VIEWS ROUTINE FINDINGS: Normal thoracic kyphosis. Vertebral bodies maintain normal height and alignment. Intervertebral disc spaces grossly reserved. Multilevel degenerative changes of both the lower cervical spine and diffusely in the thoracic spine. No radiographic evidence of acute fracture or subluxation. Shoulder arthroplasty partially obscures the cervicothoracic junction. Visualized portion of the thorax is normal. IMPRESSION: No radiographic evidence of acute osseous injury of the thoracic spine. Multilevel degenerative changes. Electronically signed by: Dimitry Guerrier M.D. 05/07/2017 7:56 AM Dictated Date/Time: 05/07/2017 7:54 AM PELVIS NO IV/ORAL CONT (CT) FINDINGS: Ssis Etl Developer topogram: Unremarkable. Bony pelvis intact. Sacroiliac joints and pubic symphysis intact. No sacral fracture. Hip joints intact. No femoral neck fracture. Degenerative changes of the lower lumbar spine. Evaluation of the soft tissues of the pelvis demonstrates postsurgical changes of hysterectomy. Diverticulosis with chronic diverticular disease. Moderate stool burden. Distended bladder. Atherosclerosis. Prominent external iliac lymph nodes bilaterally measuring up to 8 mm on the left and 6 mm on the right in the short axis, likely reactive. Multiple radiodense sutures noted along the right rectus abdominis. Small fat-containing umbilical hernia. IMPRESSION: No acute osseous injury of the pelvis or hips. Electronically signed by: Dimitry Guerrier M.D. 05/07/2017 7:54 AM Dictated Date/Time: 05/07/2017 7:45 AM R KNEE 3 VIEWS FINDINGS: Tricompartmental degenerative changes with mild osteophytosis and joint space loss in both the medial and lateral compartments. Chondrocalcinosis noted. Calcification in the region of the intercondylar notch indeterminate. No other evidence of acute fracture or malalignment. No patellar subluxation. Small knee joint effusion may be present. IMPRESSION: Calcification in the region of the intercondylar notch could represent an avulsion injury. This may be better demonstrated on noncontrast CT. No other evidence of acute fracture. Tricompartmental degenerative changes. Electronically signed by: Dimitry Guerrier M.D. 05/07/2017 8:00 AM Dictated Date/Time: 05/07/2017 7:56 AM HEAD WITHOUT CONTRAST (CT) FINDINGS: Ssis Etl Developer topogram: Unremarkable. Proportional ventricular and sulcal prominence, likely age-related parenchymal volume loss. Periventricular and subcortical white matter hypoattenuation, nonspecific but likely indicative of chronic small vessel ischemic change. No mass effect or midline shift. No hemorrhage or acute territorial infarct. No extra-axial fluid collection. Paranasal sinuses and mastoid air cells clear. Calvarium intact. Bilateral ruby lenses are absent. Minimal infiltration of the subcutaneous tissue over the left parietal vertex. IMPRESSION: 1. No acute intracranial pathology. 2. Minimal superficial soft tissue contusion over the left parietal vertex suggested. Electronically signed by: Dimitry Guerrier M.D. 05/07/2017 7:44 AM Dictated Date/Time: 05/07/2017 7:41 AM CHEST ONE VIEW PORTABLE FINDINGS: Atherosclerosis of aortic arch. Cardiac silhouette normal in size. Few calcified granulomas may be present in the right lung. Hazy reticulonodular opacity may be present at the left lung base. No pleural effusion or pneumothorax. Left shoulder arthroplasty. Degenerative changes of the spine. Upper abdomen normal. IMPRESSION: 1. Hazy reticulonodular opacity may be present at the left lung base. Recommend dedicated PA and lateral radiographs of the chest for confirmation. Electronically signed by: Dimitry Guerrier M.D. 05/07/2017 8:02 AM Dictated Date/Time: 05/07/2017 8:00 AM CHEST 2 VIEWS ROUTINE FINDINGS: Atherosclerosis of aortic arch. Cardiac silhouette normal in size. Lungs and pleural spaces clear. Degenerative changes of the thoracic spine. Left shoulder arthroplasty. Upper abdomen normal. IMPRESSION: 1. No acute cardiopulmonary disease. The previously seen hazy opacity at the left lung base is not present on the current exam and without correlate on lateral view. This was most likely due to overlapping structures on the prior exam. Electronically signed by: Dimitry Guerrier M.D. 05/07/2017 9:27 AM Dictated Date/Time: 05/07/2017 9:25 AM Laboratory Results 05/07/17 07:00 Red Blood Count 4.07, Mean Corpuscular Volume 93.4, Mean Corpuscular Hemoglobin 31.7, Mean Corpuscular Hemoglobin Concent 33.9, Mean Platelet Volume 9.5, Neutrophils (%) (Auto) 73.9, Lymphocytes (%) (Auto) 15.1, Monocytes (%) (Auto) 8.7, Eosinophils (%) (Auto) 1.8, Basophils (%) (Auto) 0.3, Neutrophils # (Auto) 6.63, Lymphocytes # (Auto) 1.36, Monocytes # (Auto) 0.78, Eosinophils # (Auto) 0.16, Basophils # (Auto) 0.03 05/07/17 07:00 Test 05/07/17 07:00 05/07/17 07:13 White Blood Count 8.98 K/uL (4.8-10.8) Red Blood Count 4.07 M/uL (4.2-5.4) Hemoglobin 12.9 g/dL (12.0-16.0) Hematocrit 38.0 % (37-47) Mean Corpuscular Volume 93.4 fL (80-100) Mean Corpuscular Hemoglobin 31.7 pg (25-34) Mean Corpuscular Hemoglobin Concent 33.9 g/dl (32-36) Platelet Count 250 K/uL (130-400) Mean Platelet Volume 9.5 fL (7.4-10.4) Neutrophils (%) (Auto) 73.9 % Lymphocytes (%) (Auto) 15.1 % Monocytes (%) (Auto) 8.7 % Eosinophils (%) (Auto) 1.8 % Basophils (%) (Auto) 0.3 % Neutrophils # (Auto) 6.63 K/uL (1.4-6.5) Lymphocytes # (Auto) 1.36 K/uL (1.2-3.4) Monocytes # (Auto) 0.78 K/uL (0.11-0.59) Eosinophils # (Auto) 0.16 K/uL (0-0.5) Basophils # (Auto) 0.03 K/uL (0-0.2) RDW Standard Deviation 42.7 fL (36.4-46.3) RDW Coefficient of Variation 12.6 % (11.5-14.5) Immature Granulocyte % (Auto) 0.2 % Immature Granulocyte # (Auto) 0.02 K/uL (0.00-0.02) Urine Color YELLOW Urine Appearance CLEAR (CLEAR) Urine pH 7.0 (4.5-7.5) Urine Specific Dixon 1.010 (1.000-1.030) Urine Protein NEG (NEG) Urine Glucose (UA) NEG (NEG) Urine Ketones NEG (NEG) Urine Occult Blood NEG (NEG) Urine Nitrite NEG (NEG) Urine Bilirubin NEG (NEG) Urine Urobilinogen NEG (NEG) Urine Leukocyte Esterase MODERATE (NEG) Urine WBC (Auto) >30 /hpf (0-5) Urine RBC (Auto) 0-4 /hpf (0-4) Urine Hyaline Casts (Auto) 0 /lpf (0-5) Urine Epithelial Cells (Auto) 10-20 /lpf (0-5) Urine Bacteria (Auto) NEG (NEG) Anion Gap 6.0 mmol/L (3-11) Est Creatinine Clear Calc Drug Dose 37.1 ml/min Estimated GFR () 47.7 Estimated GFR (Non- 41.2 BUN/Creatinine Ratio 12.4 (10-20) Calcium Level 9.6 mg/dl (8.5-10.1) Total Bilirubin 0.3 mg/dl (0.2-1) Direct Bilirubin 0.1 mg/dl (0-0.2) Aspartate Amino Transf (AST/SGOT) 15 U/L (15-37) Alanine Aminotransferase (ALT/SGPT) 19 U/L (12-78) Alkaline Phosphatase 92 U/L (45-117) Total Protein 7.1 gm/dl (6.4-8.2) Albumin 4.0 gm/dl (3.4-5.0) Lipase 73 U/L (73-393) Bedside Troponin I < 0.030 ng/ml (0-0.045) Laboratory studies as stated above per my review. ECG Indication: other (fall) Rate (beats per minute): 62 Rhythm: normal sinus Findings: no acute ischemic change, no ectopy Comparison ECG Date: 02/25/17 Change: no significant change ED Course 0628: Past medical records reviewed. The patient was evaluated in room A10, and a complete history and physical examination were performed. 0728: I spoke to the patients son. He is concerned about her being at home. He notes that she does have care at home but would like her to have more care. 0857: I reevaluated and updated the patient. She is doing well and I ordered a repeat X-Ray. 1005: Upon reevaluation, the patient is doing well. I discussed the results and treatment plan with the patient. She verbalized agreement of the treatment plan. The patient was discharged home. Medical Decision Differentials include, but are not limited to; traumatic injuries, UTI, arrhythmia, closed head injury, cardiac disease. This patient comes in after suffering what appears to be mechanical fall. She was placed in room A 10. She does live by herself. She does have some memory issues which a been getting worse lately. She may have hit her head she's complaining of hip pain more so on the right but bilaterally. She denies any chest pain. She is somewhat poor historian. IV access established, EKG was obtained which does not suggest any acute cardiac event. I did a chest x-ray and thoracic spine x-rays as well as other x-rays and CAT scan of her head and pelvis. She was reassessed frequently. She has no fever or white count to suggest infection. She's had no significant anemia. She has no acute electrode or metabolic abnormalities. She does not likely have a UTI based on her urine. CAT scan of her head was unremarkable as was the pelvis. There is no definite fracture of the knee. Chest x-ray was unremarkable. I did have our case management team talk to the son. Apparently there has been much more services offered to the patient the past but she has declined and she's been unwilling to have placement. At this point, is no acute issue to keep her in the hospital and she likely had a mechanical fall. They're to try to increase coverage at home and follow-up with her regular doctor and return if any new problems or concerns. Head Trauma GCS Score: 14 She does not know the date. Medication Reconcilliation Current Medication List: was personally reviewed by me Blood Pressure Screening Patient's blood pressure: Elevated blood pressure Blood pressure disposition: Referred to PCP Impression Primary Impression: Contusion, hip Additional Impressions: Mild closed head injury Right knee sprain Scribe Attestation The scribe's documentation has been prepared under my direction and personally reviewed by me in its entirety. I confirm that the note above accurately reflects all work, treatment, procedures, and medical decision making performed by me. Departure Information Dispostion Home / Self-Care Referrals Navin Bertrand D.O. (PCP) Forms HOME CARE DOCUMENTATION FORM, IMPORTANT VISIT INFORMATION Patient Instructions My [facility] Additional Instructions Rest. Be careful getting up and down Return if: Worsening of symptoms, not tolerating fluids, any new problems or concerns Follow-up with your doctor tomorrow for recheck Problem Qualifiers
[2017-05-07 07:29] LABS: BASO % 0.3 %; BASO ABS # 0.03 K/uL (0-0.2); COMPLETE YES; EOS % 1.8 %; IG% 0.2 %; LYMPH % 15.1 %; LYMPH ABS # 1.36 K/uL (1.2-3.4); MEAN CELL VOLUME 93.4 fL (80-100); MEAN CORPUSCULAR HEMOGLOBIN 31.7 pg (25-34); MEAN CORPUSCULAR HGB CONC 33.9 g/dl (32-36); MEAN PLATELET VOLUME 9.5 fL (7.4-10.4); MONO % 8.7 %; NEUT % 73.9 %; PLATELET COUNT 250 K/uL (130-400); RED BLOOD COUNT 4.07 M/uL (4.2-5.4); WHITE BLOOD COUNT 8.98 K/uL (4.8-10.8)
[2017-05-07 07:33] LABS: URINE APPEARANCE CLEAR (CLEAR); URINE BILIRUBIN NEG (NEG); URINE COLOR YELLOW; URINE NITRITE NEG (NEG); UROBILINOGEN NEG (NEG)
[2017-05-07 07:37] LABS: MANUAL MICROSCOPIC REQUIRED? NO; REVIEW REQ? NO
--- NOTE | 2017-05-07 07:46 | DIAGNOSTIC IMAGING REPORT ---
HEAD WITHOUT CONTRAST (CT) CLINICAL HISTORY: 86 years-old Female presenting with eval for trauma, fall. TECHNIQUE: Multidetector CT imaging of the head was performed without the use of intravenous contrast. IV contrast: None. A dose lowering technique was used consistent with the principles of ALARA (as low as reasonably achievable). COMPARISON: 02/25/2017. CT DOSE (mGy.cm): The estimated cumulative dose is 1954.[address] pelvis. FINDINGS: Neurology Stroke Physician topogram: Unremarkable. Proportional ventricular and sulcal prominence, likely age-related parenchymal volume loss. Periventricular and subcortical white matter hypoattenuation, nonspecific but likely indicative of chronic small vessel ischemic change. No mass effect or midline shift. No hemorrhage or acute territorial infarct. No extra-axial fluid collection. Paranasal sinuses and mastoid air cells clear. Calvarium intact. Bilateral [place] lenses are absent. Minimal infiltration of the subcutaneous tissue over the left parietal vertex. IMPRESSION: 1. No acute intracranial pathology. 2. Minimal superficial soft tissue contusion over the left parietal vertex suggested. Electronically signed by: Dimitry Guerrier M.D. 05/07/2017 7:44 AM Dictated Date/Time: 05/07/2017 7:41 AM
[2017-05-07 07:55] LABS: BUN/CREATININE RATIO 12.4 (10-20); CALCIUM 9.6 mg/dl (8.5-10.1); CREATININE 1.2 mg/dl (0.60-1.20); POTASSIUM 3.9 mmol/L (3.5-5.1)
--- NOTE | 2017-05-07 07:55 | DIAGNOSTIC IMAGING REPORT ---
PELVIS NO IV/ORAL CONT (CT) CLINICAL HISTORY: 86 years-old Female presenting with eval for trauma, fall. TECHNIQUE: Multidetector CT of the pelvis was performed without the use of intravenous contrast. IV contrast: None. A dose lowering technique was used consistent with the principles of ALARA (as low as reasonably achievable). COMPARISON: Plain radiographs of the pelvis from 02/25/2017. CT DOSE (mGy.cm): The estimated cumulative dose is 1954.93 mGy.cm. FINDINGS: Marketing Rotation Associate topogram: Unremarkable. Bony pelvis intact. Sacroiliac joints and pubic symphysis intact. No sacral fracture. Hip joints intact. No femoral neck fracture. Degenerative changes of the lower lumbar spine. Evaluation of the soft tissues of the pelvis demonstrates postsurgical changes of hysterectomy. Diverticulosis with chronic diverticular disease. Moderate stool burden. Distended bladder. Atherosclerosis. Prominent external iliac lymph nodes bilaterally measuring up to 8 mm on the left and 6 mm on the right in the short axis, likely reactive. Multiple radiodense sutures noted along the right rectus abdominis. Small fat-containing umbilical hernia. IMPRESSION: No acute osseous injury of the pelvis or hips. Electronically signed by: Dimitry Guerrier M.D. 05/07/2017 7:54 AM Dictated Date/Time: 05/07/2017 7:45 AM
--- NOTE | 2017-05-07 07:57 | DIAGNOSTIC IMAGING REPORT ---
THORACIC SPINE 3 VIEWS ROUTINE CLINICAL HISTORY: 86 years-old Female presenting with eval for trauma, fall. TECHNIQUE: 3 views of the thoracic spine were obtained. COMPARISON: Correlation made to chest CT from 02/25/2017. FINDINGS: Normal thoracic kyphosis. Vertebral bodies maintain normal height and alignment. Intervertebral disc spaces grossly reserved. Multilevel degenerative changes of both the lower cervical spine and diffusely in the thoracic spine. No radiographic evidence of acute fracture or subluxation. Shoulder arthroplasty partially obscures the cervicothoracic junction. Visualized portion of the thorax is normal. IMPRESSION: No radiographic evidence of acute osseous injury of the thoracic spine. Multilevel degenerative changes. Electronically signed by: Dimitry Guerrier M.D. 05/07/2017 7:56 AM Dictated Date/Time: 05/07/2017 7:54 AM
--- NOTE | 2017-05-07 08:01 | DIAGNOSTIC IMAGING REPORT ---
R KNEE 3 VIEWS CLINICAL HISTORY: 86 years-old Female presenting with right knee pain after fall. TECHNIQUE: Frontal, lateral, and sunrise views of the right knee were obtained. COMPARISON: None. FINDINGS: Tricompartmental degenerative changes with mild osteophytosis and joint space loss in both the medial and lateral compartments. Chondrocalcinosis noted. Calcification in the region of the intercondylar notch indeterminate. No other evidence of acute fracture or malalignment. No patellar subluxation. Small knee joint effusion may be present. IMPRESSION: Calcification in the region of the intercondylar notch could represent an avulsion injury. This may be better demonstrated on noncontrast CT. No other evidence of acute fracture. Tricompartmental degenerative changes. Electronically signed by: Dimitry Guerrier M.D. 05/07/2017 8:00 AM Dictated Date/Time: 05/07/2017 7:56 AM
--- NOTE | 2017-05-07 08:03 | DIAGNOSTIC IMAGING REPORT ---
CHEST ONE VIEW PORTABLE CLINICAL HISTORY: 86 years-old Female presenting with CHEST PAIN. TECHNIQUE: Portable upright AP view of the chest was obtained. COMPARISON: 04/03/2014. FINDINGS: Atherosclerosis of aortic arch. Cardiac silhouette normal in size. Few calcified granulomas may be present in the right lung. Hazy reticulonodular opacity may be present at the left lung base. No pleural effusion or pneumothorax. Left shoulder arthroplasty. Degenerative changes of the spine. Upper abdomen normal. IMPRESSION: 1. Hazy reticulonodular opacity may be present at the left lung base. Recommend dedicated PA and lateral radiographs of the chest for confirmation. Electronically signed by: Dimitry Guerrier M.D. 05/07/2017 8:02 AM Dictated Date/Time: 05/07/2017 8:00 AM
--- NOTE | 2017-05-07 09:29 | DIAGNOSTIC IMAGING REPORT ---
CHEST 2 VIEWS ROUTINE CLINICAL HISTORY: 86 years-old Female presenting with eval for possible pneumonia. TECHNIQUE: AP and lateral views of the chest were obtained. COMPARISON: 05/07/2017. FINDINGS: Atherosclerosis of aortic arch. Cardiac silhouette normal in size. Lungs and pleural spaces clear. Degenerative changes of the thoracic spine. Left shoulder arthroplasty. Upper abdomen normal. IMPRESSION: 1. No acute cardiopulmonary disease. The previously seen hazy opacity at the left lung base is not present on the current exam and without correlate on lateral view. This was most likely due to overlapping structures on the prior exam. Electronically signed by: Dimitry Guerrier M.D. 05/07/2017 9:27 AM Dictated Date/Time: 05/07/2017 9:25 AM
[2017-05-07 10:17] VITALS: BP 186/86; PULSE 64; O2SAT 98
== END 2017-05-07 10:28 | disposition home or self-care (01) ==
LOC: EDBD 06:00 → C.EDA 06:03
DX: S70.01XA Contusion of right hip, initial encounter (principal); S09.90XA Unspecified injury of head, initial encounter; S83.91XA Sprain of unspecified site of right knee, initial encounter; W01.0XXA Fall on same level from slipping, tripping and stumbling without subsequent striking against object, initial encounter; I10 Essential (primary) hypertension; Z87.81 Personal history of (healed) traumatic fracture; Z79.899 Other long term (current) drug therapy; Z88.6 Allergy status to analgesic agent; Z88.8 Allergy status to other drugs, medicaments and biological substances

== ENCOUNTER → 2017-12-01 | Outpatient (CLI) | payer OTHER ==
[~2017-12-01] MED LIST changes: +ATOR10TA82 PO; -ATOR10TA88 PO; +ATV/1 PO; -ATV1 PO; +BLAC160C PO; -CHOL1TAB42 PO; +CHOL1TAB46 PO; +MELO-84 PO; -MRLP17X PO; -OXYC-57 PO; +POLY335019 PO; +POTA8CAP6 PO; +SULF-302 PO; -[UNRECOGNIZED DRUG - CODE] PO
[2017-12-01 10:07] LABS: BASO % 0.3 %; BASO ABS # 0.02 K/uL (0-0.2); EOS ABS # 0.13 K/uL (0-0.5); HEMATOCRIT 32.2 % (37-47); HEMOGLOBIN 11.1 g/dL (12.0-16.0); IG# 0.01 K/uL (0.00-0.02); LYMPH % 38.4 %; LYMPH ABS # 2.45 K/uL (1.2-3.4); MEAN CELL VOLUME 93.6 fL (80-100); MEAN CORPUSCULAR HEMOGLOBIN 32.3 pg (25-34); MEAN CORPUSCULAR HGB CONC 34.5 g/dl (32-36); MEAN PLATELET VOLUME 9.9 fL (7.4-10.4); MONO % 10.3 %; MONO ABS # 0.66 K/uL (0.11-0.59); NEUT % 48.8 %; NEUT ABS # 3.11 K/uL (1.4-6.5); PLATELET COUNT 224 K/uL (130-400); RED CELL DISTRIBUTION WIDTH CV 12.7 % (11.5-14.5); WHITE BLOOD COUNT 6.38 K/uL (4.8-10.8)
[2017-12-01 10:17] LABS: ALBUMIN 3.3 gm/dl (3.4-5.0); ALT/SGPT 18 U/L (12-78); AST/SGOT 12 U/L (15-37); BLOOD UREA NITROGEN 11 mg/dl (7-18); CALCIUM 8.7 mg/dl (8.5-10.1); CARBON DIOXIDE 28 mmol/L (21-32); CHOLESTEROL 91 mg/dl (0-200); CREATININE 0.75 mg/dl (0.60-1.20); GLUCOSE 105 mg/dl (70-99); POTASSIUM 3.8 mmol/L (3.5-5.1); SODIUM 132 mmol/L (136-145)
[2017-12-01 10:27] LABS: ALKALINE PHOSPHATASE 68 U/L (45-117); LDL CHOLESTEROL CALCULATED 26 mg/dl; TOTAL PROTEIN 5.8 gm/dl (6.4-8.2)
== END | disposition home or self-care (01) ==
LOC: C.LABUPBEA 08:20
PROVIDERS: ATTEND Nurse Practitioner Family
DX: N18.3 Chronic kidney disease, stage 3 (moderate) (principal); E78.5 Hyperlipidemia, unspecified; G89.29 Other chronic pain; R53.81 Other malaise

== ENCOUNTER → 2017-12-02 | Outpatient (CLI) | payer OTHER | LOC: C.LABUPBEA 12:47 | PROVIDERS: ATTEND Nurse Practitioner Family | DX: I10 Essential (primary) hypertension (principal) ==

== ENCOUNTER → 2017-12-04 | Outpatient (CLI) | payer OTHER | LOC: C.LABUPBEA 09:14 | PROVIDERS: ATTEND Nurse Practitioner Family | DX: N18.3 Chronic kidney disease, stage 3 (moderate) (principal) ==

== ENCOUNTER → 2018-02-28 | Outpatient (CLI) | payer OTHER ==
[2018-02-28 10:08] LABS: BLOOD UREA NITROGEN 22 mg/dl (7-18); CALCIUM 9.1 mg/dl (8.5-10.1); CARBON DIOXIDE 31 mmol/L (21-32); CREATININE 0.94 mg/dl (0.60-1.20); GLUCOSE 107 mg/dl (70-99); POTASSIUM 3.8 mmol/L (3.5-5.1); SODIUM 136 mmol/L (136-145)
== END ==
LOC: C.LABUPBEA 09:13
PROVIDERS: ATTEND Nurse Practitioner Family
DX: R60.9 Edema, unspecified (principal); F02.81 Dementia in other diseases classified elsewhere, unspecified severity, with behavioral disturbance

== ENCOUNTER → 2018-03-01 | Outpatient (CLI) | payer OTHER | LOC: C.LABUPBEA 14:40 | PROVIDERS: ATTEND Nurse Practitioner Family | DX: N39.9 Disorder of urinary system, unspecified (principal) ==

== ENCOUNTER → 2018-03-02 | Outpatient (CLI) | payer OTHER ==
[2018-03-02 09:28] LABS: BASO % 0.3 %; BASO ABS # 0.02 K/uL (0-0.2); EOS % 3.2 %; EOS ABS # 0.21 K/uL (0-0.5); HEMATOCRIT 33.8 % (37-47); HEMOGLOBIN 11.3 g/dL (12.0-16.0); IG# 0.01 K/uL (0.00-0.02); LYMPH % 45.2 %; LYMPH ABS # 2.94 K/uL (1.2-3.4); MEAN CELL VOLUME 98.3 fL (80-100); MEAN CORPUSCULAR HEMOGLOBIN 32.8 pg (25-34); MEAN CORPUSCULAR HGB CONC 33.4 g/dl (32-36); MEAN PLATELET VOLUME 11.4 fL (7.4-10.4); MONO % 12.2 %; MONO ABS # 0.79 K/uL (0.11-0.59); NEUT % 38.9 %; NEUT ABS # 2.53 K/uL (1.4-6.5); PLATELET COUNT 185 K/uL (130-400); RED CELL DISTRIBUTION WIDTH CV 13.3 % (11.5-14.5); RED CELL DISTRIBUTION WIDTH SD 47.7 fL (36.4-46.3)
[2018-03-02 09:42] LABS: ALBUMIN 2.8 gm/dl (3.4-5.0); ALKALINE PHOSPHATASE 54 U/L (45-117); ALT/SGPT 15 U/L (12-78); AST/SGOT 9 U/L (15-37); BLOOD UREA NITROGEN 18 mg/dl (7-18); CALCIUM 8.8 mg/dl (8.5-10.1); CARBON DIOXIDE 34 mmol/L (21-32); CREATININE 0.99 mg/dl (0.60-1.20); GLUCOSE 80 mg/dl (70-99); SODIUM 136 mmol/L (136-145); TOTAL PROTEIN 5.4 gm/dl (6.4-8.2)
== END ==
LOC: C.LABUPBEA 08:33
PROVIDERS: ATTEND Nurse Practitioner Family
DX: R60.9 Edema, unspecified (principal); R53.81 Other malaise

== ENCOUNTER → 2018-03-21 | Outpatient (CLI) | payer OTHER | END | disposition home or self-care (01) | LOC: C.LABUPBEA 07:45 | PROVIDERS: ATTEND Nurse Practitioner Family | DX: R82.5 Elevated urine levels of drugs, medicaments and biological substances (principal) ==